=== PATIENT | male | born 1955 | race Caucasian/White ===

== ENCOUNTER 2019-12-26 14:25 | Emergency (ER) | payer OTHER, SELFPAY ==
--- NOTE | ~2019-12-26 | US_ITS ---
EXAMINATION: US scrotum doppler DATE: 12/26/2019 15:06 INDICATION: Testicular pain TECHNIQUE: Testicular sonogram utilizing grayscale and Doppler COMPARISON: None. FINDINGS: The right testis measures 3.2 x 2.1 x 2.5 cm. The left testis measures 3.9 x 2.0 x 2.5 cm. Symmetric normal grayscale appearance to both testes. There is normal vascular flow to both testes. The right e pididymis is normal with normal vascular flow. The left epididymis is normal with normal vascular emilie w. There is no varicocele. Small bilateral hydroceles. IMPRESSION: 1. Small bilateral hydroceles. Normal bilateral testes and epididymides. Reviewed, dictated and finalized at location A. [employer]
--- NOTE | ~2019-12-26 | CT_ITS ---
EXAMINATION: CT abdomen pelvis wo con EXAM DATE: 12/26/2019 15:44 INDICATION: Left flank pain. TECHNIQUE: Spiral CT of the abdomen and pelvis was performed without contrast. Axial, coronal and sag ittal images were reviewed. The dose-length product (DLP) for this examination was 499.75 mGy-cm. T he exposure was tailored according to patient size (auto mA exposure control), and iterative reconstr uction (ASIR) was used as additional dose reduction technique. Comparison is made to prior examinatio n from 03/09/2019. FINDINGS: There are 2 left calyceal stones, up to 5 mm. There is a 3 mm right superior calyceal stone . No ureteral stones or obstructive nephropathy. Patient has likely had prostatectomy. The bladder is collapsed at time of imaging limiting evaluation. The liver, spleen, adrenal glands and pancreas are unremarkable. Gallbladder is unremarkable. No biliary obstruction. There is no retroperitonea l or pelvic lymphadenopathy. There is mild scattered arteriosclerotic disease. Small left inguinal fat-containing hernia. The appendix is not positively visualized. There is no pericecal inflammatory change to suggest appe ndicitis. There is mild scattered colonic diverticulosis. There is no adjacent inflammatory change t o suggest diverticulitis. There are gastroesophageal surgical changes, could be Niesen fundoplication , with distended gastric cardia located above the diaphragm, moderate sized paraesophageal hernia. T here is expected amount of colonic stool. No free intraperitoneal gas. The heart is normal in siz e. There are no pericardial or pleural effusions. The lung bases are unremarkable. There are no os teoblastic or osteolytic lesions identified. IMPRESSION: 1. Bilateral nephrolithiasis. No hydronephrosis or acute intra-abdominal findings. 2. Moderate-sized paraesophageal hernia. 3. Mild colonic diverticulosis. Reviewed, dictated and finalized at location A. [employer] IMPRESSION: 1. Bilateral nephrolithiasis. No hydronephrosis or acute intra-abdominal findi ngs. 2. Moderate-sized paraesophageal hernia. 3. Mild colonic diverticulosis.
[2019-12-26 14:37] VITALS: BP 129/101; PULSE 76; RESP 16; TEMP 36.9; O2SAT 100
--- NOTE | 2019-12-26 15:00 | ED.ABDPAIN ---
HPI - Abdominal Pain General Chief Complaint: Urogenital-Male <Jackson Quinonez PA-C - Last Filed: 12/26/19 16:21> Stated Complaint: sent for possible return of testicular tortion <ISELA Colin Last Filed: 12/26/19 16:21> Time Seen by Provider: 12/26/19 14:31 <ISELA Colin Last Filed: 12/26/19 16:21> Source: patient <ISELA Colin Last Filed: 12/26/19 16:21> Mode of arrival: ambulatory <ISELA Colin Last Filed: 12/26/19 16:21> Limitations: no limitations <ISELA Colin Last Filed: 12/26/19 16:21> History of Present Illness HPI narrative: Patient is a 64-year-old male who presents to emergency department for evaluation of testicular pain for the last 7 days noting aching pain which is localized to the left testicle worse with movement activity. Notes a week ago he had had some frequency that resolved. Patient notes history of kidney stones. Patient notes he had had some mild discomfort in the lower abdomen but denies any at this time. Patient on arrival resting comfortably in the room in no distress. Patient notes he is recently getting over an upper respiratory infection. <ISELA Colin Last Filed: 12/26/19 16:21> Related Data Allergies/Adverse Reactions: Allergies Allergy/AdvReac Type Severity Reaction Status Date / Time Penicillins Allergy Mild UNKNONW Unverified 07/14/18 17:28 atorvastatin Allergy Unknown weak arms Verified 07/15/18 09:36 <ISELA Colin Last Filed: 12/26/19 16:21> Review of Systems Review of Systems: Narrative: CONSTITUTIONAL: Denies fever, chills, or sweats. EYES: Denies redness, or discharge. ENT: Positive for congestion and rhinorrhea CARDIOVASCULAR: Denies chest pain, palpitations, or edema. RESPIRATORY: Positive for cough denies dyspnea GASTROINTESTINAL: Denies nausea, vomiting, or diarrhea. GENITOURINARY: Denies dysuria or hematuria. SKIN: Denies rash or itching. MUSCULOSKELETAL: Denies joint pain, or myalgia. Positive for low back pain which she notes is chronic <Jackson Quinonez PA-C - Last Filed: 12/26/19 16:21> PMFSH Surgical History Surgical History: Surgical History (Updated 12/26/19 @ 15:02 by Jackson Quinonez PA-C) Hx of cholecystectomy <Jackson Quinonez PA-C - Last Filed: 12/26/19 16:21> Family History Family History: Family History (Updated 07/15/18 @ 09:39 by DOCTOR UNKNOWN) Other Diabetes mellitus Family history of malignant neoplasm Hypertension <Jackson Quinonez PA-C - Last Filed: 12/26/19 16:21> Social History Social History: Social History Smoking status: Never smoker Alcohol intake: current <Jackson Quinonez PA-C - Last Filed: 12/26/19 16:21> Exam Narrative: Exam Narrative: GENERAL: Well-appearing, well-nourished, and in no acute distress. HEAD: Normocephalic, atraumatic. EYES: PERRLA and EOMI. ENT: Nares clear, no rhinorrhea or epistaxis. Mucous membranes moist. CHEST: Clear to auscultation. No respiratory distress. No wheezes rales or rhonchi HEART: Regular rate and rhythm. No murmur heard. Normal peripheral pulses. ABDOMEN: Soft, nontender,distended MALE GENITOURINARY: Tenderness of the left testicle no deformities noted remainder of male genitourinary unremarkable EXTREMITIES: Normal range of motion. No edema. SKIN: Warm, dry, no rash. NEURO: No focal deficits. Alert and oriented x3. PSYCH: Normal mood and affect. <Jackson Quinonez PA-C - Last Filed: 12/26/19 16:21> Course Course Emergency Course: Patient in the room in no distress aware of case findings treatment plan and diagnosis agreeing to follow-up as directed <Jackson Quinonez PA-C - Last Filed: 12/26/19 16:21> Vital Signs Vital signs: Vital Signs Temperature 98.5 F 12/26/19 14:37 Pulse Rate 76 12/26/19 14:37 Respiratory Rate 16 12/26/19 14:3
[2019-12-26 15:32] LABS: Basophils Absolute Auto 0.1 K/mm3 (0.0-0.1); Basophils Percent Auto 1.1 % (0.2-1.2); Eosinophils Absolute Auto 0.2 K/mm3 (0-0.3); Hemoglobin 16.7 g/dL (14.0-18.0); Immature Granulocyte Absolute 0.02 K/mm3 (0.00-0.031); Immature Granulocyte Percent A 0.3 % (0-0.5); Lymphocytes Percent Auto 20.2 % (18.3-44.2); Mean Corpuscular HGB Conc 33.4 g/dl (32-36); Mean Corpuscular Hemoglobin 28.7 pg (26-34); Mean Corpuscular Volume 86.1 fl (80-100); Mean Platelet Volume 10.7 fl (7.4-10.4); Monocytes Absolute Auto 0.8 K/mm3 (0.1-0.6); Monocytes Percent Auto 10.8 % (2.6-8.5); Neutrophils Absolute Auto 4.9 K/mm3 (1.3-6.7); Neutrophils Percent Auto 65.6 % (45.5-73.1); Platelet Count Result 259 k/mm3 (150-375); Red Blood Count 5.81 M/mm3 (4.6-6.20); Red Cell Distribution Width 13.2 % (11.5-14.5); White Blood Count 7.4 K/mm3 (4.5-10.0)
[2019-12-26 15:43] LABS: Blood Urea Nitrogen 14 mg/dL (9-20); Calcium 9.5 mg/dL (8.4-10.2); Carbon Dioxide 23 mmol/L (22-30); Chloride 101 mmol/L (98-107); Estimated CRCL calculation 86 ml/min; Estimated Glomerular Filt Rate > 60; Glucose 118 mg/dL (75-110); Potassium 4.1 mmol/L (3.4-5.0); Sodium 136 mmol/L (137-145)
[2019-12-26 15:47] LABS: Add Urine Microscopic? YES; Appearance Urine Clear (Clear); Bilirubin Urine Negative (Negative); Blood Urine Negative (Negative); Color Urine Yellow (Yellow); Glucose Urine UA Negative (Negative); Ketones Urine Negative (Negative); Leukocyte Esterase Ur Trace LEU/UL (Negative); Mucus Urine Few /lpf; Nitrate Urine Negative (Negative); Protein Urine Negative (Negative); RBC Urine 0-2 /hpf (0-2); Specific Grav Ur 1.021 (1.001-1.035); Urobilinogen Urine Negative mg/dL (<2.0); WBC Urine 0-3 /hpf
== END 2019-12-26 16:30 | disposition home or self-care (01) ==
PROVIDERS: Emergency Medicine Emergency Medical Services; Emergency Provider Emergency Medicine; PCP Internal Medicine
DX: N50.812 Left testicular pain (principal); K57.30 Diverticulosis of large intestine without perforation or abscess without bleeding
CPT/HCPCS: 36415; 74176; 76870; 80048; 81001; 85025; 93976; 99284

== ENCOUNTER 2020-02-03 04:30 | Emergency (ER) | payer OTHER, SELFPAY ==
--- NOTE | ~2020-02-03 | XR_ITS ---
XR abdomen/kub 1V DATE: 02/03/2020 05:45 INDICATION: Left renal stone TECHNIQUE: Single supine AP view COMPARISON: 12/26/[address] abdomen pelvis / KUB FINDINGS: An approximately 4 x 6.5 mm calcified stone overlies the left ureteropelvic junction. A small calcified stone overlies the lower pole of the left kidney. Right upper pole renal calculus demonstrated on 12/26/2019 CT abdomen pelvis examination is likely excl uded from this examination, which does not include the upper abdomen. There are multiple surgical clips of the pelvic area consistent with prostatectomy. No suspicious ost eosclerotic lesions are noted; probable small bone island of left iliac bone. There is a prominent amount fecal material in the right colon. There is no evidence of bowel obstruct ion. IMPRESSION: Approximately 4 x 6.5 mm calcified stone at left ureteropelvic junction Bilateral nephrolithiasis Status post prostatectomy Reviewed, dictated and finalized at Location [facility]. Reviewed, dictated and finalized at location A. IMPRESSION: Approximately 4 x 6.5 mm calcified stone at left ureteropelvic junc tion Bilateral nephrolithiasis Status post prostatectomy
[2020-02-03 04:40] VITALS: BP 178/104; PULSE 69; RESP 18; TEMP 36.1; O2SAT 100
[2020-02-03] MEDS: ONDANSETRON INJ 4 MG/2 ML VIAL IV PUSH (04:57)
[2020-02-03] MEDS: MORPHINE SULFATE 4 MG/ML INJ IV PUSH (04:59)
[2020-02-03] MEDS: SODIUM CHLORIDE 0.9% IV 1,000 ML 999 ML IV CONT (04:59)
[2020-02-03 05:01] LABS: Basophils Absolute Auto 0.1 K/mm3 (0.0-0.1); Eosinophils Absolute Auto 0.1 K/mm3 (0-0.3); Eosinophils Percent Auto 1.8 % (0-4.4); Hematocrit 49.6 % (42.0-52.0); Hemoglobin 16.4 g/dL (14.0-18.0); Immature Granulocyte Absolute 0.03 K/mm3 (0.00-0.031); Immature Granulocyte Percent A 0.5 % (0-0.5); Lymphocytes Absolute Auto 1.13 K/mm3 (0.9-3.2); Lymphocytes Percent Auto 18.1 % (18.3-44.2); Mean Corpuscular HGB Conc 33.1 g/dl (32-36); Mean Corpuscular Hemoglobin 28.1 pg (26-34); Mean Corpuscular Volume 85.1 fl (80-100); Mean Platelet Volume 10.4 fl (7.4-10.4); Monocytes Absolute Auto 0.6 K/mm3 (0.1-0.6); Neutrophils Absolute Auto 4.3 K/mm3 (1.3-6.7); Neutrophils Percent Auto 68.6 % (45.5-73.1); Platelet Count Result 241 k/mm3 (150-375); Red Blood Count 5.83 M/mm3 (4.6-6.20); Red Cell Distribution Width 13.9 % (11.5-14.5); White Blood Count 6.2 K/mm3 (4.5-10.0)
--- NOTE | 2020-02-03 05:08 | ED.GENADULT ---
HPI - General Adult General Chief complaint: Abdominal Pain Stated complaint: KIDNEY STONE Time Seen by Provider: 02/03/20 04:35 Source: patient Mode of arrival: ambulatory Limitations: no limitations History of Present Illness HPI narrative: Patient is a 64-year-old male who presents to the emergency department for evaluation of left flank pain that radiates into the left lower abdomen. Described as sharp in the intermittent colicky pain. Patient has had associated nausea without emesis. No fever, chills, dysuria or hematuria. Patient with a history of recurrent nephrolithiasis, was in the emergency department about a month ago and then passed a stone. He had followed with Dr. Harden in the past and then intermittently at [facility] for his nephrolithiasis. Patient has not taken any medication for pain. Related Data Home Medications Medication Instructions Recorded Confirmed atorvastatin 02/03/20 ezetimibe mg 02/03/20 hydrocodone-acetaminophen 02/03/20 losartan 02/03/20 telmisartan mg 02/03/20 Allergies Allergy/AdvReac Type Severity Reaction Status Date / Time Penicillins Allergy Mild UNKNONW Unverified 02/03/20 05:24 atorvastatin Allergy Unknown weak arms Verified 02/03/20 05:24 Review of Systems Review of Systems: Narrative: CONSTITUTIONAL: Denies fever, chills, or sweats. EYES: Denies visual changes, redness, or discharge. ENT: Denies rhinorrhea, congestion, sore throat, or otalgia. CARDIOVASCULAR: Denies chest pain, palpitations, or edema. RESPIRATORY: Denies cough or dyspnea. GASTROINTESTINAL: Reports left lower quadrant abdominal pain, nausea, denies vomiting or diarrhea GENITOURINARY: Denies dysuria or hematuria. SKIN: Denies rash or itching. MUSCULOSKELETAL: Reports left lower back pain, denies myalgias NEUROLOGIC: Denies headache, numbness, or weakness. [facility] Past Medical History Medical History (Updated 02/03/20 @ 05:50 by June Marion MD) Nephrolithiasis Prostate cancer Surgical History Surgical History (Updated 02/03/20 @ 05:09 by June Marion MD) H/O prostatectomy Hx of cholecystectomy Family History Family History (Updated 07/15/18 @ 09:39 by DOCTOR UNKNOWN) Other Diabetes mellitus Family history of malignant neoplasm Hypertension Social History Social History Smoking status: Never smoker Alcohol intake: current Exam Narrative: Exam Narrative: GENERAL: Awake, alert, slightly uncomfortable. HEAD: Normocephalic, atraumatic. EYES: PERRLA and EOMI. ENT: Nares clear, no rhinorrhea or epistaxis. Mucous membranes moist. NECK: Supple. CHEST: Clear to auscultation. No respiratory distress. HEART: Regular rate and rhythm. No murmur heard. Normal peripheral pulses. ABDOMEN: Soft, mild left lower quadrant tenderness, nondistended, normal active bowel sounds. Left flank tenderness. EXTREMITIES: Normal range of motion. No edema. SKIN: Warm, dry, no rash. NEURO: No focal deficits. Alert and oriented x3 Course Course Emergency Course: Patient presented to the emergency department for evaluation of left flank pain. Patient with history of nephrolithiasis, CT scan in December shows that the patient has 2 left-sided kidney stones. Given patient's recent CT scan and history of prostate cancer, no RICHARD, no UTI, obtained a KUB for today. We were able to get pain control, and patient elected for discharge home and follow-up with Dr. Harden. Vital Signs Vital signs: Vital Signs Temperature 36.1 C L 02/03/20 04:40 Pulse Rate 69 02/03/20 04:40 Respiratory Rate 18 02/03/20 04:40 Blood Pressure 178/104 H 02/03/20 04:40 Pulse Oximetry 100 02/03/20 04:40 Temperature 36.1 C L 02/03/20 04:40 Pulse Rate 70 02/03/20 05:09 Respiratory Rate 16 02/03/20 05:09 Blood Pressure 133/94 H 02/03/20 05:09 Pulse Oximetry 97 02/03/20 05:09 Medical Decision Making Medical Rec
[2020-02-03 05:09] VITALS: BP 133/94; PULSE 70; RESP 16; O2SAT 97
[2020-02-03 05:13] LABS: Alanine Aminotransferase 33 U/L (4-50); Albumin Level 4.4 g/dL (3.5-5.1); Alkaline Phosphatase 109 U/L (38-126); Aspartate Amino Transferase 28 U/L (17-59); Bilirubin,Total 0.9 mg/dL (0.2-1.3); Blood Urea Nitrogen 15 mg/dL (9-20); Calcium 9.6 mg/dL (8.4-10.2); Carbon Dioxide 24 mmol/L (22-30); Chloride 104 mmol/L (98-107); Estimated CRCL calculation 65 ml/min; Estimated Glomerular Filt Rate 56; Glucose 141 mg/dL (75-110); Potassium 4.2 mmol/L (3.4-5.0); Sodium 136 mmol/L (137-145)
[2020-02-03 05:19] LABS: Add Urine Microscopic? YES; Appearance Urine Clear (Clear); Bacteria Urine Trace /hpf; Bilirubin Urine Negative (Negative); Blood Urine 3+ (Negative); Color Urine Yellow (Yellow); Glucose Urine UA Negative (Negative); Ketones Urine Negative (Negative); Leukocyte Esterase Ur Negative LEU/UL (Negative); Mucus Urine Rare /lpf; Nitrate Urine Negative (Negative); Protein Urine Negative (Negative); RBC Urine >75 /hpf (0-2); Squamous Epithelial Cell Urine Rare /hpf (Few); Urobilinogen Urine Negative mg/dL (<2.0); WBC Urine 0-3 /hpf
[2020-02-03] MEDS: KETOROLAC 15 MG/ML VIAL (*BKC) IV PUSH (06:02)
[2020-02-03 06:14] VITALS: BP 126/88; PULSE 71; RESP 18; TEMP 36.2; O2SAT 99
== END 2020-02-03 06:19 | disposition home or self-care (01) ==
PROVIDERS: Emergency Provider Emergency Medicine; PCP Internal Medicine
DX: N20.2 Calculus of kidney with calculus of ureter (principal); Z85.46 Personal history of malignant neoplasm of prostate; Z90.79 Acquired absence of other genital organ(s); Z87.442 Personal history of urinary calculi
CPT/HCPCS: 36415; 74018; 80053; 81001; 85025; 96361; 96374; 96375; 99284; J0131; J1885; J2270; J2405; J7030

== ENCOUNTER 2020-02-07 10:02 | Outpatient (CLI) | payer OTHER, SELFPAY ==
--- NOTE | 2020-02-07 10:08 | ECG_ITS ---
Measurements Intervals Edelstein Rate: 79 P: 58 NC: 163 QRS: 17 QRSD: 102 T: 32 QT: 366 QTc: 421 Interpretive Statements SINUS RHYTHM BASELINE ARTIFACT- I, II, AVR NORMAL ECG Electronically Signed On 02-07-2020 10:38:00 CDT by Jose Guadalupe Angeles D.O.
[2020-02-07 11:10] LABS: INR 0.9; Prothrombin Time 11.9 Seconds (11.1-14.7)
[2020-02-07 11:11] LABS: Partial Thromboplastin Time 27.7 SECONDS (22.3-36.8)
== END 2020-02-07 10:03 | disposition home or self-care (01) ==
LOC: ANHSURGERY 10:08
PROVIDERS: PCP Internal Medicine; Visit Provider Urology
DX: N20.0 Calculus of kidney (principal); I10 Essential (primary) hypertension
CPT/HCPCS: 36415; 85610; 85730; 87086; 93005

== ENCOUNTER 2020-02-10 01:24 | Day surgery (SDC) | payer OTHER, SELFPAY ==
[2020-02-06 15:57] VITALS: BMI 32.9
[2020-02-10] VITALS (7 sets, daily range): BP systolic 120–148; BP diastolic 90–98; PULSE 68–89; RESP 17–22; TEMP 36.3–36.9; O2SAT 97–100; BMI 32.8
--- NOTE | ~2020-02-10 | XR_ITS ---
EXAMINATION: XR abdomen/kub 1V DATE: 02/10/2020 11:06 INDICATION: Right sided nephrolithiasis for lithotripsy. TECHNIQUE: A supine view of the abdomen on 2 radiographs was obtained. COMPARISON: 02/03/2020 FINDINGS: No interval change in a 7 x 4 mm stone projecting over the region of the right ureteropelvic junction . Also unchanged is a 3 mm stone projecting over the lower pole of the left kidney and a 4 mm stone p rojecting over the upper pole of the right kidney. Unchanged pattern of multiple phleboliths in the p salvatore. There are also multiple surgical clips in the pelvis. No dilated loops of gas-filled bowel to suggest obstruction. Hiatal hernia with additional multiple surgical clips at the epigastric region. Lung bases are clear. Heart size is normal. Mild lower lumbar levocurvature with moderate spondylosis . IMPRESSION: 1. Bilateral nephrolithiasis with unchanged stone at the left ureteropelvic junction. Reviewed, dictated and finalized at location A. IMPRESSION: 1. Bilateral nephrolithiasis with unchanged stone at the left ureteropelvic manny ction.
--- NOTE | 2020-02-10 09:22 | WPDHPUPDATE1 ---
History and Physical Update Update Date/Time: 02/10/20 09:22 History and Physical has been reviewed, including an updated exam of the patient. There are NO changes in the patient's condition. Risks, benefits, and alternatives have been discussed and questions answered. Patient agrees to proceed with procedure.
[2020-02-10] MEDS: LACTATED RINGERS 1,000 ML 30 ML IV CONT ×2 (10:45→12:39)
--- NOTE | 2020-02-10 11:06 | WPDANESEPPF ---
Anes - Initial Pre Proc Eval Procedure: Operation Date: 02/10/20 11:30 Proposed Procedures p Left Ureteropelvic Junction Extracorporeal Shock Wave Lithotripsy With Left Stent Placement, Possible Left Ureteroscopy, Possible Left Retrograde Pyelogram - Acosta Harden MD s Possible Holmium Laser Procedure - Acosta Harden MD Date/Time: 02/10/20 11:06 Surgeon: Acosta Harden MD Pre Op Diagnosis: Left UPJ Stone Patient Data Age: 64 Gender: M Height: 5 ft 11 in Weight: 107.05 kg Allergies Allergy/AdvReac Type Severity Reaction Status Date / Time Penicillins Allergy Mild UNKNOWN Unverified 02/06/20 15:59 REACTION atorvastatin Allergy Unknown MUSCLE Verified 02/06/20 15:59 WEAKNESS Home Medications Medication Instructions Recorded Confirmed Type atorvastatin 10 mg PO EVERY OTHER DAY 02/03/20 02/06/20 History ezetimibe 10 mg PO DAILY 02/03/20 02/06/20 History losartan 50 mg PO DAILY 02/03/20 02/06/20 History oxycodone-acetaminophen 1 tablet PO Q6H PRN #14 tablet 02/03/20 02/06/20 Rx tamsulosin [Flomax] 0.4 mg PO DAILY #30 cap 02/03/20 02/06/20 Rx Prostaglandin 50 mg SUBCUT WEEKLY 02/06/20 History apple cider vinegar 300 mg PO DAILY 02/06/20 02/06/20 History aspirin 81 mg PO DAILY 02/06/20 02/06/20 History cholecalciferol (vitamin D3) 50 mcg PO DAILY 02/06/20 02/06/20 History [Vitamin D3] cinnamon bark [Cinnamon] 1,000 mg PO DAILY 02/06/20 02/06/20 History cyanocobalamin (vitamin B-12) 5,000 mcg SUBLINGUAL DAILY 02/06/20 02/06/20 History [Vitamin B-12] multivitamin 2 tablet PO DAILY 02/06/20 02/06/20 History ondansetron HCl [Zofran] 4 mg PO Q8H PRN 02/06/20 02/06/20 History Patient hx anesthesia problems: none Family hx anesthesia problems: none PMFSH Past Medical History Medical History (Updated 02/10/20 @ 11:07 by Erwin Gonzalez MD) HTN (hypertension) Hyperlipidemia Nephrolithiasis Prostate cancer Surgical History Surgical History H/O prostatectomy Hx of cholecystectomy Family History Family History Other Diabetes mellitus Family history of malignant neoplasm Hypertension Social History Social History Smoking status: Never smoker Alcohol intake: current Anes - Eval Final PreProcedure Day of Procedure 02/10/20 11:06 Patient weight: obese Heart: regular rate and rhythm Lungs: clear to auscultation Airway: Mallampati scale class III Neurological: alert and oriented Last oral intake: >/= 8 hours ASA classification: III Emergent: no Anesthetic plan: proceed Anesthesia type and monitoring: general LMA and standard monitoring Informed Consent: The patient's anesthetic plan and its attendant risks and benefits were discussed with the patient/family/POA. Questions were solicited and answers provided to the satisfaction of the patient/family/POA.
[2020-02-10] MEDS: ceFAZolin 2 GM/D5W 50 ML 2 GM/50 ML BAG IVPB (11:56)
--- NOTE | 2020-02-10 12:32 | PM.PROC ---
Procedure Note - Detailed Date of procedure: 02/10/20 Pre-op diagnosis: Left UPJ Stone Post-op diagnosis: same Procedure performed: Lithotripsy of left UPJ calculus 7 mm Description of procedure: Patient was taken to the operative suite. He was correctly identified. Once anesthesia was obtained the stone was localized in both planes. Two thousand five hundred shocks were given to the stone. He tolerated procedure well without any complications and is taken recovery room stable condition. A follow-up in 10 days with KUB. She develops any problems prior to that he will call us so we can deal with appropriately. Anesthesia: GLMA Surgeon: Acosta Harden MD Drains: No Packing: No Pathology: none sent Complications: No immediate complications Condition: stable Disposition: PACU
== END 2020-02-10 14:23 | disposition home or self-care (01) ==
PROVIDERS: PCP Internal Medicine; Visit Provider Urology
PROC: (CPT 50590; principal; 2020-02-10 11:30)
DX: N20.1 Calculus of ureter (principal); I10 Essential (primary) hypertension; E78.5 Hyperlipidemia, unspecified; Z85.46 Personal history of malignant neoplasm of prostate; Z79.82 Long term (current) use of aspirin; E66.9 Obesity, unspecified; Z68.32 Body mass index [BMI] 32.0-32.9, adult
CPT/HCPCS: 50590; 74018; A9270; J0690; J1100; J2250; J2370; J2405; J2704; J7120

== ENCOUNTER → 2020-02-28 15:38 | Outpatient (CLI) | payer OTHER, SELFPAY ==
--- NOTE | ~2020-02-28 | XR_ITS ---
EXAMINATION: XR abdomen/kub 1V INDICATION: Calcium kidney stone TECHNIQUE: Supine views of the abdomen were obtained on 2 radiographs. COMPARISON: 02/10/2020 FINDINGS: The previously described stones projecting at the left ureteropelvic junction and in the le ft kidney lower pole are no longer identified, likely due to interval treatment. There is a questiona ble 4 mm stone fragment projecting over the left L4 transverse process. There appears to be a [address] one in the upper pole of the right kidney. Multiple phleboliths are noted in the pelvis. Also noted a re surgical clips in the pelvis. Moderate lumbar spondylosis is noted. IMPRESSION: 1. Interval treatment of the previously described left-sided stones with possible stone fragment in t he left ureter at the level of the L4 transverse process. 2. Right nephrolithiasis. Reviewed, dictated and finalized at location A. IMPRESSION: 1. Interval treatment of the previously described left-sided stones with possib le stone fragment in the left ureter at the level of the L4 transverse process. 2. Right nephrolithiasis.
== END ==
PROVIDERS: Visit Provider Urology
DX: N20.0 Calculus of kidney (principal)
CPT/HCPCS: 74018

== ENCOUNTER → 2021-02-26 12:08 | Outpatient (CLI) | payer OTHER, SELFPAY ==
--- NOTE | ~2021-02-26 | MR_ITS ---
EXAMINATION: MR lumbar spine wo [facility] EXAM DATE: 02/26/2021 12:49 INDICATION: Acute right-sided low back pain with right-sided sciatica. TECHNIQUE: Multi-sequential, multiplanar MR images of the lumbar spine were obtained without contrast . Sagittal T1, T2, T2 fat saturation images. Axial T2 weighted images. There is no prior study for comparison. FINDINGS: Mild to moderate disc disease at L4-5 with vacuum disc phenomenon. Mild disc disease at the other lumbar levels. Large hemangioma within the L1 vertebral body. There is 3 mm retrolisthesis L5 on S1. The conus medullaris terminates at the T12-L1 level and has normal signal intensity and morpho logy. Paraspinal soft tissue is unremarkable. Level by level evaluation: T12-L1: Disc does not extend beyond the endplate margin. Facet arthropathy: Mild. Neural foraminal stenosis: No stenosis. Central canal stenosis: No stenosis. L1-L2: There is a mild diffuse disc bulge with superimposed small left central extrusion, about 5 mm inferior migration. Facet arthropathy: Mild. Neural foraminal stenosis: No stenosis. Central canal stenosis: Mild. L2-L3: There is a mild to moderate diffuse disc bulge. Facet arthropathy: Mild to moderate. Neural foraminal stenosis: Mild bilateral. Central canal stenosis: Mild. L3-L4: There is a mild to moderate diffuse disc bulge. Facet arthropathy: Mild to moderate. Neural foraminal stenosis: Mild to moderate bilateral. Central canal stenosis: Mild to moderate. L4-L5: There is a moderate diffuse disc bulge. Facet arthropathy: Moderate . Ligamentum flavum enlargement. Neural foraminal stenosis: Moderate right, mild to moderate left. Central canal stenosis: Moderate. Bilateral lateral recess narrowing and nerve root crowding. L5-S1: There is a mild diffuse disc bulge. Facet arthropathy: Mild. Neural foraminal stenosis: Mild to moderate left. Central canal stenosis: Mild. IMPRESSION: 1. L4-5 moderate central canal and right neural foraminal stenosis. 2. Less spondylosis other levels. Reviewed, dictated and finalized at location A.
== END ==
PROVIDERS: PCP Internal Medicine; Visit Provider Internal Medicine
DX: M54.41 Lumbago with sciatica, right side (principal)
CPT/HCPCS: 72148

== ENCOUNTER 2023-10-15 15:37 | Emergency (ER) | payer OTHER, SELFPAY ==
--- NOTE | ~2023-10-15 | XR_ITS ---
XR abdomen/kub 1V DATE: 10/15/2023 18:11 INDICATION: Kidney stone TECHNIQUE: AP views COMPARISON: None FINDINGS: There is an approximately 4 x 6 mm calcification overlying the right ureteropelvic junction , consistent with ureteropelvic junction calculus at this site confirmed on today's CT abdomen pelvis examination. Occasional small bilateral renal calculi documented on today's CT abdomen pelvis examin ation are minimally if at all visualized. No bowel obstruction. The psoas shadows appear intact. No visceromegaly is evident. Multiple surgical clips overlying the pelvis consistent with prostatectomy. Surgical clips are noted in the left upper quadrant as well.. IMPRESSION: Right ureterovesical junction calcified calculus Reviewed, dictated and finalized at [facility]. 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
--- NOTE | ~2023-10-15 | CT_ITS ---
EXAMINATION: CT abdomen pelvis wo con DATE: 10/15/2023 16:29 INDICATION: Right flank pain. History of stones. TECHNIQUE: Computed tomography (CT) of the abdomen and pelvis was performed without intravenous contr ast. Automated exposure control and iterative reconstruction technique were employed. Exam dose: 577 .66 mGy-cm total exam DLP. COMPARISON: December 26, 2019 CT abdomen pelvis FINDINGS: Left foramen of [place] fat-containing hernia. The lung bases are clear of infiltrate or consolidation. Heart size is normal. There is coronary deborah ry calcification. No pericardial or pleural effusion. Moderate size is paraesophageal hernia. Surgical clips are noted laterally along the upper stomach on either side of the diaphragm. The liver, gallbladder, bile ducts, spleen, pancreas, pancreatic duct, and adrenal glands are unremar kable. There are several small nonobstructing right renal calculi and approximately 4 nonobstructing left re nal calculi, the largest approximately 3.7 mm. There is a right ureteropelvic junction calculus which measures up to 4.9 x 7.3 x 7.3 mm dimension, w ith mild right hydronephrosis and perinephric stranding as a result. The urinary bladder is evacuated, essentially unremarkable on this limited noncontrast examination. Status post prostatectomy. Small fat-containing left inguinal hernia. Diverticulosis of the left colon; no CT evidence of diverticulitis. No bowel obstruction or intraperi toneal free air. The appendix is not visualized. Moderate to moderately severe degenerative disc disease at L4-5 and L5-S1. No suspicious osteolytic o r osteoblastic lesions are noted. IMPRESSION: 4.9 x 7.3 x 7.3 mm obstructing right ureteropelvic junction calculus with mild right hyd ronephrosis and perinephric stranding Mild bilateral nonobstructive nephrolithiasis Moderate paraesophageal hiatal hernia Small fat-containing left inguinal hernia Status post prostatectomy Diverticulosis of left colon; no evidence of diverticulitis Reviewed, dictated and finalized at [facility]. Reviewed, dictated and finalized at location [facility]. 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
[2023-10-15 15:38] VITALS: PULSE 90; RESP 16; TEMP 36.4; O2SAT 100
[2023-10-15 16:06] LABS: Basophils Percent Auto 0.4 % (0.2-1.2); Eosinophils Percent Auto 0.3 % (0-4.4); Hematocrit 51.8 % (42.0-52.0); Hemoglobin 16.9 g/dL (14.0-18.0); Immature Granulocyte Absolute 0.03 K/mm3 (0.00-0.031); Immature Granulocyte Percent A 0.3 % (0-0.5); Lymphocytes Absolute Auto 0.94 K/mm3 (0.9-3.2); Lymphocytes Percent Auto 8.6 % (18.3-44.2); Mean Corpuscular HGB Conc 32.6 g/dl (32-36); Mean Corpuscular Hemoglobin 28.7 pg (26-34); Mean Corpuscular Volume 87.9 fl (80-100); Mean Platelet Volume 10.8 fl (7.4-10.4); Monocytes Absolute Auto 0.9 K/mm3 (0.1-0.6); Monocytes Percent Auto 7.8 % (2.6-8.5); Neutrophils Absolute Auto 9.1 K/mm3 (1.3-6.7); Neutrophils Percent Auto 82.6 % (45.5-73.1); Platelet Count Result 259 k/mm3 (150-375); Red Blood Count 5.89 M/mm3 (4.6-6.20); Red Cell Distribution Width 13.9 % (11.5-14.5)
[2023-10-15 16:14] LABS: Appearance Urine Cloudy (Clear); Bacteria Urine None Seen /hpf; Bilirubin Urine Negative (Negative); Blood Urine 3+ (Negative); Color Urine Dark Yellow (Yellow); Glucose Urine UA Negative (Negative); Ketones Urine Trace mg/dL (Negative); Leukocyte Esterase Ur Negative LEU/UL (Negative); Nitrate Urine Negative (Negative); Non Pathogenic Casts 0-2; Protein Urine Trace mg/dL (Negative); RBC Urine 51-100 /hpf (0-2); Specific Grav Ur 1.028 (1.001-1.035); Squamous Epithelial Cell Urine None seen /hpf (Few); WBC Urine 0-5 /hpf; pH Urine 5.5 (5.0-9.0)
[2023-10-15 16:15] LABS: Add Urine Microscopic? YES
[2023-10-15 16:16] LABS: Alanine Aminotransferase 53 U/L (6-50); Anion Gap 11 mmol/L (8-16); Aspartate Amino Transferase 45 U/L (17-59); Bilirubin,Total 1.2 mg/dL (0.2-1.3); Blood Urea Nitrogen 16 mg/dL (9-20); Calcium 9.8 mg/dL (8.4-10.2); Carbon Dioxide 26 mmol/L (22-30); Chloride 102 mmol/L (98-107); Estimated CRCL calculation 61 ml/min; Estimated Glomerular Filt Rate 51; Glucose 207 mg/dL (65-110); Potassium 4.4 mmol/L (3.4-5.0); Sodium 139 mmol/L (137-145)
[2023-10-15 16:17] LABS: Albumin Level 4.7 g/dL (3.5-5.1); Alkaline Phosphatase 90 U/L (38-126)
--- NOTE | 2023-10-15 18:05 | ED.GENADULT ---
HPI - General Adult General Chief complaint: Urogenital-Male Stated complaint: kidney stones Time Seen by Provider: 10/15/23 15:46 History of Present Illness HPI narrative: 67-year-old male history of kidney stones presenting to the emergency department for evaluation of right flank pain. Patient no longer has a urologist that he follows up with. patient has prior history of kidney stones and prostate cancer. Patient previously had follow-up with Dr. Harden. patient reports worsening right flank pain over the last few days he continued to worsen today. Related Data Home Medications Medication Instructions Recorded Confirmed atorvastatin 10 mg tablet 10 mg PO EVERY OTHER DAY 02/03/20 02/06/20 ezetimibe 10 mg tablet 10 mg PO DAILY 02/03/20 02/06/20 losartan 50 mg tablet 50 mg PO DAILY 02/03/20 02/06/20 Prostaglandin 50 mg subcut WEEKLY 02/06/20 apple cider vinegar 300 mg tablet 300 mg PO DAILY 02/06/20 02/06/20 aspirin 81 mg tablet,delayed 81 mg PO DAILY 02/06/20 02/06/20 release cholecalciferol (vitamin D3) 50 50 mcg PO DAILY 02/06/20 02/06/20 mcg (2,000 unit) tablet (Vitamin D3) cinnamon bark 500 mg capsule 1,000 mg PO DAILY 02/06/20 02/06/20 (Cinnamon) cyanocobalamin (vitamin B-12) 5,000 mcg sublingual DAILY 02/06/20 02/06/20 5,000 mcg sublingual tablet (Vitamin B-12) multivitamin 2 tablet PO DAILY 02/06/20 02/06/20 ondansetron HCl 4 mg tablet 4 mg PO Q8H PRN Nausea 02/06/20 02/06/20 (Zofran) Allergies Allergy/AdvReac Type Severity Reaction Status Date / Time Penicillins Allergy Mild UNKNOWN Verified 02/10/20 11:26 REACTION atorvastatin Allergy Unknown MUSCLE Verified 02/06/20 15:59 WEAKNESS Review of Systems Review of Systems: All systems reviewed & are unremarkable except as noted in HPI and below PMFSH Past Medical History Medical History (Updated 10/16/23 @ 00:00 by Susy Ventura) HTN (hypertension) Hyperlipidemia Nephrolithiasis Prostate cancer Surgical History Surgical History H/O prostatectomy Hx of cholecystectomy Family History Family History Other Diabetes mellitus Family history of malignant neoplasm Hypertension Social History Social History Smoking status: Never smoker Alcohol intake: current Exam Narrative: APPEARANCE: Well appearing, no pain, no distress, well-nourished. HEAD: normocephalic, atraumatic. EYES: PERRLA/EOMI, conjunctivae clear. NOSE: Normal no drainage EARS:TMS clear with good light reflex. THROAT: Pharynx clear, no exudate. NECK: Supple. No adenopathy, no masses. RESPIRATORY: Airway patent, respirations nonlabored. Clear to auscultation bilaterally, no rales, rhonchi, wheezing. CARDIOVASCULAR: Regular rate and rhythm without murmurs rubs or gallops. ABDOMINAL: Soft, nontender, nondistended, normal bowel sounds MUSCULOSKELETAL: Moves all extremities. Strength/ROM intact, No edema, No calf tenderness. NEURO: Alert. Cranial nerves II through XII intact. grossly intact SKIN: Warm, dry. Normal Color Course Course Emergency Course: 67-year-old male presents emergency department for evaluation of right flank pain that felt similar to his previous kidney stones. Patient is afebrile with a leukocytosis of 11.0 and a stable hemoglobin of 16.9. No significant changes on the patient's CMP and UA shows no evidence of infection but does have blood. 4.9 x 7.3 x 7.3 mm obstructing right ureteropelvic junction calculus with mild right hydronephrosis and perinephric stranding. Patient reports that his pain is controlled. Patient will be discharged home with Zofran Flomax and medication for pain control. Patient was also encouraged to have close follow-up with Urology. All questions concerns were addressed patient was comfortable with plan for discharge and c
[2023-10-15 18:21] VITALS: BP 137/97; O2SAT 100
[2023-10-15] MEDS: ONDANSETRON HCL ODT 4 MG TABLET PO (18:31)
[2023-10-15] MEDS: TAMSULOSIN HCL 0.4 MG CAPSULE PO (18:31)
[2023-10-15] MEDS: HYDROcodone/acetaminophen (*CRX) 10-325 MG TABLET 1 TAB PO (18:31)
--- NOTE | 2023-10-15 18:39 | PC.NURSE ---
Pt and daughter both state his blood pressure is always elevated when in pain. Pt daughter stated they didnt want to bring him to hospital because he might get admitted for his bp. Both pt and daughter insist that his blood pressure is normally high. Pt states he missed his coreg dose at 5pm. Pt [id number]
== END 2023-10-15 18:39 | disposition home or self-care (01) ==
PROVIDERS: Emergency Provider Emergency Medicine; PCP Family Medicine Sports Medicine
DX: N13.2 Hydronephrosis with renal and ureteral calculous obstruction (principal); I10 Essential (primary) hypertension; E78.5 Hyperlipidemia, unspecified; Z87.442 Personal history of urinary calculi; Z85.46 Personal history of malignant neoplasm of prostate; Z90.79 Acquired absence of other genital organ(s); Z90.49 Acquired absence of other specified parts of digestive tract; Z79.82 Long term (current) use of aspirin; K44.9 Diaphragmatic hernia without obstruction or gangrene; K40.90 Unilateral inguinal hernia, without obstruction or gangrene, not specified as recurrent; K57.90 Diverticulosis of intestine, part unspecified, without perforation or abscess without bleeding
CPT/HCPCS: 36415; 74018; 74176; 80053; 81001; 85025; 99284; A9270

== ENCOUNTER 2023-10-21 14:29 | Outpatient (CLI) | payer OTHER, SELFPAY ==
--- NOTE | 2023-10-21 14:48 | ECG_ITS ---
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
[2023-10-21 15:36] LABS: INR 0.9
[2023-10-21 15:37] LABS: Appearance Urine Clear (Clear); Bacteria Urine None Seen /hpf; Bilirubin Urine Negative (Negative); Blood Urine 3+ (Negative); Color Urine Yellow (Yellow); Glucose Urine UA Negative (Negative); Hyaline Casts Urine Present /lpf; Ketones Urine Trace mg/dL (Negative); Leukocyte Esterase Ur Trace LEU/UL (Negative); Nitrate Urine Negative (Negative); Non Pathogenic Casts 0-2; Protein Urine Negative (Negative); Specific Grav Ur 1.022 (1.001-1.035); Squamous Epithelial Cell Urine None seen /hpf (Few); WBC Urine 0-5 /hpf; pH Urine 5.5 (5.0-9.0)
[2023-10-21 15:38] LABS: Add Urine Microscopic? YES; Partial Thromboplastin Time 30.7 SECONDS (22.3-36.8)
== END 2023-10-21 14:30 | disposition home or self-care (01) ==
LOC: ANHSURGERY 14:35
PROVIDERS: PCP Family Medicine Sports Medicine; Visit Provider Urology
DX: N20.0 Calculus of kidney (principal); E78.5 Hyperlipidemia, unspecified; Z01.818 Encounter for other preprocedural examination
CPT/HCPCS: 36415; 81001; 85610; 85730; 93005

== ENCOUNTER 2023-10-23 03:30 | Day surgery (SDC) | payer OTHER, SELFPAY ==
[2023-10-21 09:04] VITALS: BMI 32.8
--- NOTE | 2023-10-21 09:14 | PC.NURSE ---
PRE-OP INSTRUCTIONS, PLEASE READ CAREFULLY Report to the Outpatient Waiting Room, entrance under the green pavilion located off [facility], at time _0600_ on date _10/23/23_. Planned Procedure Time: _0730_. Time changes happen often and if your time is changed the preop area will call you the afternoon before. - You and your visitor will be asked to self-screen and do not enter if you have any COVID symptoms. - A mask is optional within the hospital at this time. Patients may have clear liquids (water, carbonated beverages, clear teas, apple juice) until 3 hours prior to surgery (0430 AM) with a maximum of 20 ounces. - No food from midnight until time of surgery Take the following medications with a SIP of water the morning of surgery: _PAIN PILL IF NEEDED_ DO NOT STOP ANY OF YOUR OTHER PRESCRIPTION MEDICATIONS PRIOR TO SURGERY ?EXCEPT THE FOLLOWING Medications to discontinue per physician _PT STATES STOPPING ASPIRIN 10/14/23 & OTC VITAMINS/SUPPLEMENTS 10/20/23 Please no make-up, nail czech, hairspray, perfume, deodorant, or body powder the day of surgery. No jewelry (including any body piercings) or valuables the day of surgery, leave them at home. Please take a shower or bath the night before, or the morning of, surgery with an antibacterial soap. Wear comfortable, loose fitting clothing. - Jewelry must be removed prior to entering the operating room. Rings and piercings that are not removed may be cut off. - The hospital will not accept responsibility for valuables. - Please leave all valuables, including medications, at home the day of surgery. If you are going home after surgery, a licensed parts driver must drive you home. - NO public transportation without another adult if you receive anesthesia. - We recommend that an adult stay with you for 24 hours following discharge. - We also recommend that you do not drive, make important decision, drink alcoholic beverages, or take any drugs that were not prescribed by your health care provider for at least 24 hours after your discharge time. Follow any additional instructions given to you from your surgeon. If you or anyone in your household have experienced Covid symptoms in the past week, please notify your surgeon or the nurse liaison at the phone number below for possible testing. Telephone instructions given to _PATIENT_and asked if any additional questions and then verbalized understanding. Patient advised to call surgeon office or pre surgery nurse liaison [phone] if any additional questions.
--- NOTE | 2023-10-22 15:21 | WPDANESEPPF ---
Anes - Initial Pre Proc Eval Procedure: Operation Date: 10/23/23 07:30 Proposed Procedures p Left Ureteral Extracorporeal Shock Wave Lithotripsy - Martin Rivera MD Date/Time: 10/22/23 15:21 Surgeon: Martin Rivera MD Pre Op Diagnosis: left ureteral stone Patient Data Age: 67 Gender: M Height: 1.83 m Weight: 110 kg Allergies Allergy/AdvReac Type Severity Reaction Status Date / Time Penicillins Allergy Mild UNKNOWN - Verified 10/23/23 06:34 A CHILD atorvastatin Allergy Unknown MUSCLE Verified 10/23/23 06:34 WEAKNESS Home Medications Medication Instructions Recorded Confirmed Type atorvastatin 10 mg tablet 10 mg PO EVERY OTHER DAY 02/03/20 10/23/23 History ezetimibe 10 mg tablet 10 mg PO DAILY 02/03/20 10/23/23 History losartan 50 mg tablet 50 mg PO DAILY 02/03/20 10/23/23 History aspirin 81 mg tablet,delayed 81 mg PO DAILY 02/06/20 10/23/23 History release cyanocobalamin (vitamin B-12) 5,000 mcg sublingual DAILY 02/06/20 10/23/23 History 5,000 mcg sublingual tablet (Vitamin B-12) hydrocodone 5 mg-acetaminophen 325 1 tablet PO Q12H PRN pain #14 tabs 10/15/23 10/23/23 Rx mg tablet ondansetron 4 mg disintegrating 4 mg PO Q8H PRN nausea and 10/15/23 10/23/23 Rx tablet vomiting #20 tabs tamsulosin 0.4 mg capsule (Flomax) 0.4 mg PO DAILY 7 days #7 caps 10/15/23 10/23/23 Rx acetaminophen 500 mg tablet 500 mg PO Q6H PRN Pain 10/21/23 10/23/23 History berberine-herbal comb no.18 capsule 2 cap PO DAILY 10/21/23 10/23/23 History multivitamin with iron-mineral 1 tablet PO DAILY 10/21/23 10/23/23 History Patient hx anesthesia problems: none Family hx anesthesia problems: none Results Review: All pre-operative results and documents have been reviewed as part of the pre-operative evaluation. [facility] Past Medical History Medical History (Updated 10/22/23 @ 15:22 by Italo Ashraf DO) HTN (hypertension) Hyperlipidemia Nephrolithiasis TERELL (obstructive sleep apnea) CPAP Prostate cancer Surgical History Surgical History (Updated 10/22/23 @ 15:22 by Italo Ashraf DO) H/O prostatectomy History of repair of hiatal hernia Hx of cholecystectomy Family History Family History Other Diabetes mellitus Family history of malignant neoplasm Hypertension Social History Social History Smoking status: Never smoker Second hand tobacco smoke exposure: No Alcohol intake: current Alcohol use details: VERY RARE - 1 OR 2X YEAR Substance use: never Substance use type: does not use Living arrangements: with family Spiritual care concerns: No Anes - Eval Final PreProcedure Day of Procedure 10/22/23 15:21 Patient weight: obese Heart: regular rate and rhythm Lungs: clear to auscultation Airway: Mallampati scale class II Neurological: alert and oriented Last oral intake: >/= 8 hours ASA classification: III Emergent: no Anesthetic plan: proceed Anesthesia type and monitoring: general LMA and standard monitoring Results Review: All pre-operative results and documents have been reviewed as part of the pre-operative evaluation. Informed Consent: The patient's anesthetic plan and its attendant risks and benefits were discussed with the patient/family/POA. Questions were solicited and answers provided to the satisfaction of the patient/family/POA.
[2023-10-23] VITALS (7 sets, daily range): BP systolic 110–126; BP diastolic 78–95; PULSE 64–88; RESP 16–23; TEMP 36.7–36.8; O2SAT 97–100
--- NOTE | ~2023-10-23 | XR_ITS ---
Supine and upright views of the abdomen Clinical history: Lithotripsy COMPARISON: 10/15/2023 Findings: Bowel gas pattern is nonspecific. No evidence for obstruction or free air. Pelvic surgical clips and calcified pelvic phleboliths are unchanged. Possible mid right ureteral stone projecting ju st inferior to the right L3 transverse process. Multiple small left renal stones are present. Osseous structures are intact. Impression: Several small left renal stones. Possible mid right ureteral stone projecting just inferior to the right L3 transverse process. Reviewed, dictated and finalized at location [facility]. CTOR PEDIATRIC Impression: Several small left renal stones. Possible mid right ureteral stone projecting just inferior to the right L3 ariza sverse process.
--- NOTE | 2023-10-23 06:30 | WPDHPUPDATE1 ---
History and Physical Update Update Date/Time: 10/23/23 06:30 History and Physical has been reviewed, including an updated exam of the patient. There are NO changes in the patient's condition. Risks, benefits, and alternatives have been discussed and questions answered. Patient agrees to proceed with procedure.
[2023-10-23] MEDS: LACTATED RINGERS 1,000 ML 30 ML IV CONT (07:10)
[2023-10-23] MEDS: ceFAZolin 2 GM/D5W 50 ML 2 GM/50 ML BAG IVPB (07:27)
--- NOTE | 2023-10-23 08:09 | W.PM.PROC2 ---
Procedure Note - Detailed Date of Procedure 10/23/23 Pre-op Diagnosis Right ureteral stone Post-op Diagnosis Same Procedure Performed Right ESWL Surgeon Martin Rivera MD Anesthesia General Description of Procedure The patient was brought to the operative suite where he was placed in the supine position on the Dornier lithotripsy table. The focal point of the lithotripter was placed at a 7mm right mid-ureteral calculus. A total of 3000 shocks were delivered at a power setting of 6. There appeared to be good fragmentation of the stone. The patient tolerated the procedure well and was taken to the recovery room in good condition. Pathology None sent Complications No immediate complications Condition Stable
== END 2023-10-23 09:48 | disposition home or self-care (01) ==
PROVIDERS: PCP Family Medicine Sports Medicine; Visit Provider Urology
PROC: (CPT 50590; principal; 2023-10-23 07:30)
DX: N20.1 Calculus of ureter (principal); E78.5 Hyperlipidemia, unspecified
CPT/HCPCS: 50590; 36415; 74018; 81001; 85610; 85730; 93005; J0690; J1100; J2250; J2405; J2704; J3010; J7120

== ENCOUNTER → 2023-11-05 11:00 | Outpatient (CLI) | payer OTHER, SELFPAY ==
--- NOTE | ~2023-11-05 | CT_ITS ---
Non-contrast CT scan of the Abdomen and Pelvis Clinical indication: Renal stone Technique: 2.5 mm axial scans were obtained through the abdomen and pelvis without intravenous or or al contrast. Dose reduction technique was used on this scan by utilizing automated exposure control a nd iterative reconstruction technique. The dose-length product (DLP) was 1018.74 mGy-cm. Findings: Images through the lung bases reveal [id number] hiatal hernia. There is a 5 mm mid right ureteral stone (axial image 89. There is an additional 5 mm distal right ur eteral stone (axial image 108). There is mild right hydroureteronephrosis. There are multiple additio nal small bilateral nonobstructing renal stones. No left ureteral stone or left hydronephrosis. The liver, spleen, pancreas, gallbladder, and adrenals appear normal. There is no aortic aneurysm. There is no evidence of bowel obstruction. Images through the pelvis were performed. There is no evidence of ascites or lymphadenopathy. Urinary bladder unremarkable. Patient appears to be status post prostatectomy. Small fat-containing left ing uinal hernia present. Impression: Two 5 mm right ureteral stones, one at the mid ureter, and one at the distal ureter, as detailed abov e. Associated mild right hydroureteronephrosis. Multiple additional small bilateral nonobstructing renal stones. 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 Associated mild right hydroureteronephrosis. Multiple additional small bilateral nonobstructing renal stones.
== END ==
PROVIDERS: PCP Family Medicine Sports Medicine; Visit Provider Urology
DX: N20.2 Calculus of kidney with calculus of ureter (principal)
CPT/HCPCS: 74176

== ENCOUNTER 2024-05-24 10:56 | Outpatient (CLI) | payer OTHER, SELFPAY ==
--- NOTE | ~2024-05-24 | XR_ITS ---
XR abdomen/kub 1V Ordering provider: Martin Rivera MD History: . N20.1 - Calculus of ureter, PAIN IN LOWER LEFT SIDE . Comparison: October 23, 2023 FINDINGS: BOWEL: Nonobstructive bowel gas pattern. ORGANOMEGALY: None. SIGNIFICANT PATHOLOGIC CALCIFICATIONS: Tiny calcifications in the left kidney. OTHER: No free air is seen under the diaphragm. Postoperative changes in the pelvis. IMPRESSION: NO ACUTE ABDOMINAL FINDINGS. Tiny stones in the left kidney. Reviewed, dictated and finalized at location A.
== END 2024-05-24 10:57 | disposition home or self-care (01) ==
PROVIDERS: PCP Family Medicine Sports Medicine; Visit Provider Urology
DX: N20.0 Calculus of kidney (principal)
CPT/HCPCS: 74018

== ENCOUNTER 2025-01-22 10:14 | Emergency (ER) | payer OTHER, SELFPAY ==
--- NOTE | 2025-01-22 10:38 | ED.GENADULT ---
HPI - General Adult General Chief complaint: Upper Respiratory Infection Stated complaint: sore throat, ear ache,cough, head hurts Time Seen by Provider: 01/22/25 10:38 Source: patient Mode of arrival: ambulatory Limitations: no limitations History of Present Illness HPI narrative: 69-year-old male patient presents to the [facility] with complaints of flu-like symptoms for the past 2-3 days. Patient denies any fevers. the patient states he has had some slight body aches, sore throat, congestion feels like his ears are full. Patient states last night he did experience some left-sided chest tightness but that has since resolved. Patient denies any shortness of breath or chest pain at this time. Denies any abdominal pain, nausea, vomiting or diarrhea. Patient states he has been taking [id number] Tylenol, Benadryl for his symptoms Related Data Home Medications ?Medication ?Instructions ?Recorded ?Confirmed ?Last Taken ?Type atorvastatin 10 mg tablet 10 mg PO EVERY OTHER DAY 02/03/20 10/23/23 10/22/23 20:00 History ezetimibe 10 mg tablet 10 mg PO DAILY 02/03/20 10/23/23 10/22/23 20:00 History losartan 50 mg tablet 50 mg PO DAILY 02/03/20 10/23/23 10/22/23 20:00 History aspirin 81 mg tablet,delayed 81 mg PO DAILY 02/06/20 10/23/23 10/16/23 History release cyanocobalamin (vitamin B-12) 5,000 mcg sublingual DAILY 02/06/20 10/23/23 10/16/23 History 5,000 mcg sublingual tablet (Vitamin B-12) acetaminophen 500 mg tablet 500 mg PO Q6H PRN Pain 10/21/23 10/23/23 10/22/23 09:00 History berberine-herbal comb no.18 capsule 2 cap PO DAILY 10/21/23 10/23/23 10/16/23 History multivitamin with iron-mineral 1 tablet PO DAILY 10/21/23 10/23/23 10/16/23 History Allergies Allergy/AdvReac Type Severity Reaction Status Date / Time Penicillins Allergy Mild UNKNOWN - Verified 01/22/25 10:40 A CHILD atorvastatin Allergy Unknown MUSCLE Verified 01/22/25 10:40 WEAKNESS Review of Systems Review of Systems: CONSTITUTIONAL: Denies fever, chills, or sweats. positive body aches EYES: Denies visual changes, redness, or discharge. ENT: positive rhinorrhea, congestion, sore throat, positive bilateral otalgia. CARDIOVASCULAR: positive left-sided chest pain, denies palpitations, or edema. RESPIRATORY: positive cough , denies dyspnea. GASTROINTESTINAL: Denies abdominal pain, nausea, vomiting, or diarrhea. GENITOURINARY: Denies dysuria or hematuria. SKIN: Denies rash or itching. MUSCULOSKELETAL: Denies back pain, joint pain, or myalgia. NEUROLOGIC: Denies headache, numbness, or weakness. PSYCHIATRIC: Denies anxiety or depression. [facility] Past Medical History Medical History TERELL (obstructive sleep apnea) CPAP Hyperlipidemia HTN (hypertension) Prostate cancer Nephrolithiasis Surgical History Surgical History History of repair of hiatal hernia H/O prostatectomy Hx of cholecystectomy Family History Family History Other Diabetes mellitus Family history of malignant neoplasm Hypertension Social History Social History Smoking status: Never smoker Second hand tobacco smoke exposure: No Alcohol intake: current Alcohol use details: VERY RARE - 1 OR 2X YEAR Substance use: never Substance use type: does not use Living arrangements: with family Spiritual care concerns: No Comments At the time of my signature I agree with nursing past medical history, surgical, social, and family history. There is no relevant family history pertinent to the presenting complaint. Exam Narrative: GENERAL: Well-appearing, well-nourished, and in no acute distress. HEAD: Normocephalic, atraumatic. EYES: PERRLA and EOMI. ENT: Nares with erythema edema noted bilaterally, no rhinorrhea or epistaxis. Mucous membranes moist. posterior pharynx with slight erythema but no tonsillar enlargement, no exudates or lesions present. Bilateral TMs are clear with no erythema or foreign bodies the canal. A little bit of fluid noted behind the TM. NECK: Supple. No lymphadenopathy CHEST: Clear to auscultation. No respiratory distress. HEART: Regular rate and rhythm. No murmur heard. Normal peripheral pulses. ABDOMEN: Soft, nontender, nondistended, normal active bowel sounds. EXTREMITIES: Normal range of motion. No edema. SKIN: Warm, dry, no rash. NEURO: No focal deficits. Alert and oriented x3. Course Course Level of Care: Express Care Visit Vital Signs Vital signs: Vital Signs Temperature 36.7 C 01/22/25 10:43 Pulse Rate 82 01/22/25 10:43 Respiratory Rate 18 01/22/25 10:43 Blood Pressure 143/88 H 01/22/25 10:43 Pulse Oximetry 97 01/22/25 10:43 Oxygen Delivery Room Air 01/22/25 10:43 Temperature 36.7 C 01/22/25 10:43 Pulse Rate 82 01/22/25 10:43 Respiratory Rate 18 01/22/25 10:43 Blood Pressure 143/88 H 01/22/25 10:43 Pulse Oximetry 97 01/22/25 10:43 Oxygen Delivery Room Air 01/22/25 10:43 Vital signs reviewed Medical Decision Making MDM Narrative Medical decision making narrative: Discussed with patient that his point of care testing for influenza, COVID and strep all resulted negative. We will send the strep culture to lab for further testing and if it does come back positive we will call him in an antibiotic at that time. Discussed with patient would like to check an EKG on him since he was complaining of left-sided chest pain if that looks okay most likely will discharge him home and encourage [id number] medication to help with his symptoms. Patient verbalized understanding denies any other questions or concerns at this time. Differential Diagnosis Differential Diagnosis: differential diagnosis: Allergic rhinitis, chronic sinusitis, tonsillitis, acute sinusitis, infectious mononucleosis, seasonal influenza, pertussis, diphtheria, meningococcal disease, viral syndrome, viral bronchitis, RSV, COVID-19 Vital Signs Vital Signs: Vital Signs Temperature 36.7 C 01/22/25 10:43 Pulse Rate 82 01/22/25 10:43 Respiratory Rate 18 01/22/25 10:43 Blood Pressure 143/88 H 01/22/25 10:43 Pulse Oximetry 97 01/22/25 10:43 Oxygen Delivery Room Air 01/22/25 10:43 Temperature 36.7 C 01/22/25 10:43 Pulse Rate 82 01/22/25 10:43 Respiratory Rate 18 01/22/25 10:43 Blood Pressure 143/88 H 01/22/25 10:43 Pulse Oximetry 97 01/22/25 10:43 Oxygen Delivery Room Air 01/22/25 10:43 Lab Data Labs: Lab Results 01/22/25 01/22/25 Range/Units 10:57 11:02 POC Influenza A Ag Negative (Negative) POC Influenza B Ag Negative (Negative) POC SARS CoV-2 Ag Negative (Negative) POC Grp A Strep Screen Negative (Negative) ECG Data EKG #1: Attestation: I personally reviewed and interpreted this ECG as follows: ECG completion date: 01/22/25 ECG completion time: 11:19 Prior ECG tracings: not available for review Interpretation: Vent rate: 83 VA interval: 163 QRS duration: 97 QT/ QTC: 358/398 P-R- T axis: 53, 44, 42. Sinus rhythm. Normal ECG. Unconfirmed report. Critical Care Time Critical Care Time Critical Care Time: No Discharge Plan Discharge Clinical Impression: Viral URI with cough, Pharyngitis Patient Disposition: Home, Self-Care Condition: Stable Instructions: Antibiotic Form, Viral Syndrome (ED) Additional Instructions: Viral illness may last between 7-12days; antibiotic is NOT recommended at this time. Recommend antihistamine such as Benadryl at night time and Claritin/Zyrtec/Mary during the day Cough syrup may cause drowsiness; avoid driving or take it at night time. may take [id number] Coricidin HBP to help with symptoms since you do have high blood pressure Also, recommend symptomatic treatment includes: rest, fluids, and increase humidity of the air at home. Recommend Acetaminophen or nonsteroidal anti-inflammatory agents (NSAIDs) as directed in the bottle to reduce fever and/pain/headache. Avoid smoking/second-hand smoke. Limit visits to areas with large crowds. Please schedule a follow-up visit with your personal physician for further evaluation and treatment within 3-5days. Including recheck and discussion of your blood pressure. If your symptoms persist, change or worsen significantly before you can contact your personal physician then please, without delay, go to the emergency department for further evaluation. Patient Language: Hebrew Prescriptions: No Action aspirin 81 mg Tablet,Delayed Release (Dr/Ec) 81 mg PO DAILY cyanocobalamin (vitamin B-12) [Vitamin B-12] 5,000 mcg Tablet, Sublingual 5,000 mcg SUBLINGUAL DAILY losartan 50 mg tablet 50 mg PO DAILY atorvastatin 10 mg tablet 10 mg PO EVERY OTHER DAY ezetimibe 10 mg tablet 10 mg PO DAILY acetaminophen 500 mg Tablet 500 mg PO Q6H PRN (Reason: Pain) multivitamin with iron-mineral Tablet 1 tablet PO DAILY berberine-herbal comb no.18 Capsule 2 cap PO DAILY Follow-up/Referrals: Sierra,Nando Brand MD [Primary Care Provider] - Time of Disposition: 11:19
[2025-01-22 10:43] VITALS: BP 143/88; PULSE 82; RESP 18; TEMP 36.7; O2SAT 97
[2025-01-22 11:00] LABS: EDSTREPNEGPOS1 Negative (Negative)
[2025-01-22 11:04] LABS: EDCOVIDSCREEN Negative (Negative)
[2025-01-22 11:05] LABS: EDINFLUASCREEN Negative (Negative); EDINFLUBSCREEN Negative (Negative)
== END 2025-01-22 11:22 | disposition home or self-care (01) ==
PROVIDERS: Emergency Provider Nurse Practitioner Family; PCP Family Medicine Sports Medicine
DX: J06.9 Acute upper respiratory infection, unspecified (principal); B97.89 Other viral agents as the cause of diseases classified elsewhere; E78.5 Hyperlipidemia, unspecified; I10 Essential (primary) hypertension; Z85.46 Personal history of malignant neoplasm of prostate; Z20.822 Contact with and (suspected) exposure to COVID-19
CPT/HCPCS: 87081; 87426; 87804; 87880; 93005; 99213; G0463

== ENCOUNTER 2025-05-25 14:12 | Outpatient (CLI) | payer OTHER, SELFPAY ==
--- NOTE | ~2025-05-25 | CT_ITS ---
Non-contrast CT scan of the Abdomen and Pelvis Clinical indication: Kidney stone Technique: 2.5 mm axial scans were obtained through the abdomen and pelvis without intravenous or or al contrast. Dose reduction technique was used on this scan by utilizing automated exposure control a nd iterative reconstruction technique. The dose-length product (DLP) was 919.20 mGy-cm. COMPARISON: 09/05/2023 Findings: Images through the lung bases reveal moderate to large paraesophageal hernia. Bilateral nonobstructing renal stones are present, more numerous and located in the right. Largest st one measures up to 5 mm in diameter. No ureteral stone or hydronephrosis on either side. The liver, spleen, pancreas, gallbladder, and adrenals appear normal. There is no aortic aneurysm. There is no evidence of bowel obstruction. Images through the pelvis were performed. There is no evidence of ascites or lymphadenopathy. No blad lyly unremarkable. Status post prostatectomy. No pelvic mass. Impression: Bilateral nonobstructing renal stones, as detailed above. No ureteral stone or hydronephrosis. Status post prostatectomy. 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 Reviewed, dictated and finalized at [facility]. Impression: Bilateral nonobstructing renal stones, as detailed above. No ureteral stone or hydronephrosis. Status post prostatectomy. 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
--- NOTE | ~2025-05-25 | XR_ITS ---
XR abdomen/kub 1V 05/25/2025 14:30 Indication: Renal stone Procedure: KUB Comparison: Comparison to multiple prior studies sequentially, with oldest reviewed study dated 05/2020. Findings: Bowel gas pattern nonobstructive. There are surgical changes of the abdomen and pelvis. The re are multiple pelvic phleboliths. There are bilateral renal stones. Impression: 1: Bilateral nephrolithiasis. Reviewed, dictated and finalized at location A. Impression: 1: Bilateral nephrolithiasis.
== END 2025-05-25 14:13 | disposition home or self-care (01) ==
LOC: MICIMG 14:13
PROVIDERS: PCP Family Medicine Sports Medicine; Visit Provider Urology
DX: N20.0 Calculus of kidney (principal)
CPT/HCPCS: 74018; 74176

== ENCOUNTER 2025-06-01 11:19 | Outpatient (CLI) | payer OTHER, SELFPAY ==
--- OUTSIDE RECORDS SUMMARY | 2025-06-01 11:29 | XMS_ITS | Encounter Summary ---
Author Organization [facility] Address [address] [place] [address] Care Team Providers Care Unix Manager Name Role Phone Iglesia Moreno MD Primary Care Provider U Vaishali Desouza NP Primary Care Provider [phone] Elvira Cantu MD Primary Care Provider [phone] Nando Esquivel MD Primary Care Provider [phone] Encounter Details Date Type Department Care Team (Late st Contact Info) Description 10/05/2018 Abstract [facility] CONVERSION [address] [place] [address] , Generic MD Odalys Social History Tobacco Use Types Packs/Day Years Used Date Smoking Tobacco: Never Assessed Sex and Gender Information Value Date Recorded Sex Assigned at Male 09/20/2020 8:39 AM CDT Legal Sex Male 9:25 PM CDT Gender Identity Male 09/20/2020 8:39 AM CDT Sexual Orientation Straight 09/20/2020 8: 39 AM CDT documented as of this encounter Plan of Treatment Upcoming Encounters Date Type Department Care Team (Late st Contact Info) Description 07/13/2025 4:00 PM CDT Office Visit [facility] Family & Internal Medicine [facility] [address] [place] [address] Nando Esquivel MD [address] [address] documented as of this encounter Visit Diagnoses Not on filedocumented in this encounter Additional Health Concerns Infection Onset Date Last Indicated Resolved Time COVID-19 Rule Out 10/25/2020 10/25/2020 10/25/2020 2:10 PM LOAN UNDERWRITER COVID-19 Confirmed 10/25/2020 10/25/2020 12:33 AM LOAN UNDERWRITER COVID-19 Rule Out 11/27/2021 11/27/2021 11/27/2021 11:49 AM LOAN UNDERWRITER COVID-19 Rule Out 08/19/2023 07/28/2023 08/19/2023 10:44 AM CDT COVID-19 Rule Out 10/01/2023 10/01/2023 10/01/2023 11:52 AM LOAN UNDERWRITER COVID-19 Rule Out 11/05/2023 11/05/2023 11/05/2023 12:36 PM LOAN UNDERWRITER COVID-19 Rule Out 11/05/2023 11/05/2023 11/05/2023 12:40 PM LOAN UNDERWRITER COVID-19 Rule Out 11/05/2023 11/05/2023 11/05/2023 2:15 PM LOAN UNDERWRITER documented as of this encounter Care Teams Unix Manager Relationship Specialty Start Date End Date Iglesia Moreno MD PCP - General INTERNAL MEDICINE 03/10/19 02/26/23 Vaishali Lundy ALL SOURCE INTELLIGENCE TECHNICIAN [address] [place] [address] PCP - General Nurse Practitioner Family 02/27/2304/24 [place] [address] [place] [address] PCP - General FAMILY PRACTICE 05/18/23 06/07/23 [place] [address] [place], [place] [id number] PCP - General FAMILY PRACTICE 06/08/23 documented as of this encounter
--- OUTSIDE RECORDS SUMMARY | 2025-06-01 11:29 | XMS_ITS | Referral Summary ---
Author Organization [facility] Address [address] [place] [address] Care Team Providers Care Panel Lay Up Worker Name Role Phone Nando Esquivel MD Primary Care Provider + Allergies Active Allergy Reactions Criticality Noted Date Comments Penicillins Unknown Low 06/25/2007 Remote allergy Oxxkvlg-Ayv-Uyt Reductase Inhibitors Other (See comments) Low 01/16/2016 Weakness in large doses Medications aspirin 81 mg tablet Take 1 tablet (81 mg total) by mouth daily Act marine multivitamin tabletIndicati ons:Vitamin Deficiency Prevention Take 1 tablet by mouth daily Active UNABLE TO FIND Inject 5 mL as directed daily PGE-140MCG/ML; 5ML VIAL; INJECT INTRACAVERNOSALLY DIRECTED Alprostadil 50 mg (also known as prostaglandin) 01/31/20 10 Active cyanocobalamin , vitamin B-12, 5,000 mcg tablet,disinte gratingIndicat ions:Preventio n of Vitamin B12 Deficiency Take 1 tablet by mouth daily Active ezetimibe (ZETIA) 10 mg tablet Take 1 tablet (10 mg total) by mouth daily. 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 History of colon polyps 09/25/2021 Overview (09/25/2021): Added automatically from request for surgery [id number] History of Mendoza's esophagus 09/25/2021 Overview (09/25/2021): Added automatically from request for surgery [id number] Spondylosis of lumbar spine 04/15/2021 Encounter for screening colo noscopy for xcx-hazw-awjj patient 08/24/2018 Overview (08/24/2018): Added automatically from request for surgery [id number] Odynophagia 07/13/2018 Overview (07/13/2018): Added automatically from request for surgery [id number] Hypertension 07/11/2018 Assessment & Plan (07/13/2019 2:33 PM CDT): Blood pressure is under excellent control on the current medical regimen. We will make no changes to his regimen. He will continue with lifestyle modifications. He is up-to-date on labs with his primary care physician. Hyperlipidemia 07/11/2018 Immunizations Immunization Administration Dates Next Due Influenza, Quadrivalent, Spl it, Preservative Free, Intramuscular 10/06/2020,09/10/2016 Influenza, Trivalent, IM (MDV) 09/08/2013,2011 Influenza, Trivalent, Preser vative Free, Intramuscular 10/20/2015 Influenza, Unspecified 09/08/2019,2018,09/01/2018,08/30,08/31/2017,11/08/2014 Social History Tobacco Use Types Packs/Day Years Used Date Smoking Tobacco: Never Smokeless Tobacco: Never Alcohol Use Standard Drinks/Week Comments Yes 0 (1 standard drink = 0.6 oz pur e alcohol) rarely AUDIT-C Answer Date Recorded Q1: How often do you have a drink containing alcohol? Never 10/24/2024 Q2: How many drinks containi ng alcohol do you have on a typical day when you are drinking? Patient does not drink Q3: How often do you have si x or more drinks on one occasion? Never 10/24/2024 Personal Safety Answer Date Recorded Have you ever been in or are you currently in a harmful physical or emotional relationship or is someone making you feel afraid or unsafe? Denies 10/31/2024 Sex and Gender Information Value Date Recorded Sex Assigned at Not on file Legal Sex Male 8:52 PM AREA COORDINATOR Gender Identity Not on file Sexual Orientation Not on file Last Filed Vital Signs Vital Sign Reading Time Taken Comments Blood Pressure 109/66 10/31/2024 3:10 PM AREA COORDINATOR Pulse 71 10/31/2024 3:10 PM AREA COORDINATOR Temperature 36.9 C (98.4 F) 10/31/2024 11:53 AM AREA COORDINATOR Respiratory Rate 16 10/31/2024 3:10 PM AREA COORDINATOR Oxygen Saturation 100% 10/31/2024 3:10 PM AREA COORDINATOR Inhaled Oxygen Concentration - - Weight 109.8 kg (242 lb) 10/31/2024 11:53 AM AREA COORDINATOR Height 182.9 cm (6') 10/31/2024 11:53 AM AREA COORDINATOR Body Mass Index 32.82 10/31/2024 11:53 AM AREA COORDINATOR Plan of Treatment Not on file Procedures Procedure Name Priority Date/Time Associated Diagnosis Comments COLONOSCOPY 10/31/2024 2:11 PM AREA COORDINATOR PSA DIAGNOSTIC Routine Gen Lab 04/22/2017 11:44 AM CDT from Last 3 Months or Most Recently Relevant to Health Maintenance Results * Colonoscopy (10/31/2024 2:11 PM AREA COORDINATOR) Anatomical Region Laterality Modality Other Narrative Procedure Note Soco Boo MD - 10/31/2024 2:11 PM CST ENDOSCOPY LAB Patient Name: Kirill Duran Procedure Date: 10/31/2024 2:11 PM Admit Type: Outpatient Room: [facility] Date of : 1955 Instrument Name: [id number] Gender: Male Note Status: Finalized Procedure: Colonoscopy Indications: High risk colon cancer surveillance: Personalhistory of adenoma less than 10 mm in size, Lastcolonoscopy: October 2021 Providers: Soco Boo M.D. Referring MD: Iglesia Moreno M.D. Medicines: Monitored Anesthesia Care Complications: No immediate complications. Estimated Blood Loss: Estimated blood loss: none. Procedure: Pre-Anesthesia Assessment: - Prior to the procedure, a History and Physicalwas performed, and patient medications and allergieswere reviewed. The patient's tolerance of previous anesthesia was also reviewed. The risks andbenefits of the procedure and the sedation options and risks were discussed with the patient. All questions were answered, and informed consent was obtained. Prior Anticoagulants: The patient has taken noanticoagulant or antiplatelet agents. ASA Grade Assessment: III -A patient with severe systemic disease. Afterreviewing the risks and benefits, the patient was deemed in satisfactory condition to undergo the procedure. - The risks and benefits of the procedure and the sedation options and risks were discussed with the patient. All questions were answered and informed consent was obtained. The benefits, risks and alternatives of theprocedure and sedation were discussed and informed consentwas obtained. All questions were answered. Please referto the signed informed consent document in the medical record. The scope was passed under direct vision.The Colonoscope was introduced through the anus and advanced to the the cecum, identified byappendiceal orifice and ileocecal valve. The colonoscopy was performed without difficulty. The patient tolerated the procedure well. The quality of the bowel preparation was evaluated using the BBPS (BostonBowel Preparation Scale) with scores of: Right Colon = 3, Transverse Colon = 3 and Left Colon = 3 (entiremucosa seen well with no residual staining, smallfragments of stool or opaque liquid). The total BBPS score equals 9. The ileocecal valve, appendiceal orifice, and rectum were photographed. The bowel preparation used was GoLYTELY via split dose instruction. Findings: The perianal and digital rectal examinations were normal. A few small-mouthed diverticula were found in the sigmoid colon. A 3 mm polyp was found in the rectum. The polyp was sessile. Thepolyp was removed with a cold snare. Resection and retrieval werecomplete. External and internal hemorrhoids were found during retroflexion. The hemorrhoids were small. Impression: - Diverticulosis in the sigmoid colon. - One 3 mm polyp in the rectum, removed with a cold snare. Resected and retrieved. - External and internal hemorrhoids. Recommendation: - Patient has a contact number available for emergencies. The signs and symptoms of potential delayed complications were discussed with thepatient. Return to normal activities tomorrow. Written discharge instructions were provided to thepatient. - Discharge patient to home (with escort). - Resume previous diet. - Continue present medications. - Await pathology results. - Repeat colonoscopy in 5 years for surveillance. - In the unusual situation that you developabdominal pain, bleeding or other significant problems in the days following this procedure please call my officeat [phone] to speak to my nurse, Raeann Milligan.After hours and evenings please call [phone] andspeak to the GI fellow relocation commissioner. Please tell them that Dr. Boo did your procedure and that you wereinstructed to have the fellow call me or the physiciancovering for me to discuss the management of your condition.If you have an urgent problem, [facility] and have the ER doctor call myoffice during the day or the GI Fellow after hours and weekends to arrange admission or transfer to our facility. Electronically signed by Soco Boo MD Soco Boo M.D. 10/31/2024 2:42:22 PM Number of Addenda: 0 Note Initiated On: 10/31/2024 2:11 PM Scope Withdrawal Time: 0 hours 8 minutes 37 seconds Scope In: 2:22:56 PM Scope Out: 2:35:01 PM us Soco Boo MD ENDOSCOPY PROCEDURES Final Resu lt * (ABNORMAL) PSA diagnostic (04/22/2017 11:44 AM CDT) PSA-Total <0.1(L) 0.1 - 4.0 ng/mL [facility] Blood specimen (specimen) 04/22/2017 11:44 AM CDT 04/22/2017 12:38 PM CDT us Notinfile Unknown LAB BLOOD ORDERABLES Final Res ult [facility] Department [place] [address] from Last 3 Months or Most Recently Relevant to Health Maintenance Insurance [facility] CHOICE PLUS [facility] ADVANTAGE CHOICE PPO [facility] ADVANTAGE CHOICE PPO Advance Directives For more information, please contact: [phone] * Full Code (Latest Code Status on File) Date Activated Date Inactivated Comments 10/31/2024 11:39 AM 10/31/2024 7:29 PM * Full Code Date Activated Date Inactivated Comments 10/31/2021 9:21 AM 10/31/2021 5:47 PM * Full Code Date Activated Date Inactivated Comments 11/01/2018 7:16 AM 11/01/2018 11:13 AM * Full Code Date Activated Date Inactivated Comments 07/13/2018 12:29 PM 07/14/2018 10:54 AM Care Teams Panel Lay Up Worker Relationship Specialty [place] [address] [place] [address] PCP - General Family Medicine 10/19/23
--- OUTSIDE RECORDS SUMMARY | 2025-06-01 11:29 | XMS_ITS | Encounter Summary ---
Author Organization [facility] Address [facility] [place] [address] Care Team Providers Care Sheep Farm Manager Name Role Phone Vaishali Lundy NP Primary Care Provider [phone] Elvira Cantu MD Primary Care Provider [phone] Nando Esquivel MD Primary Care Provider [phone] Encounter Details Date Type Department Care Team (Late st Contact Info) Description 02/27/2023 [employer] Message [facility] Family & Internal Medicine [address] [address] [facility] Provider results Social History Tobacco Use Types Packs/Day Years Used Date Smoking Tobacco: Never Smokeless Tobacco: Never Alcohol Use Standard Drinks/Week Comments No 0 (1 standard drink = 0.6 oz pur e alcohol) AUDIT-C Answer Date Recorded Frequency of Alcohol Consumption Never 03/16/2019 Average Number of Drinks Not on file 019 Frequency of Binge Drinking Not on file 02/22 PHQ-2 Answer Date Recorded PHQ-2 Score - If the patient scores above 3, please move on to questions 3-9 0 11/27/2021 Education Answer Date Recorded What is the highest level of school you have completed or the highest degree you have received? Associate degree: academic program 03/16/2019 Sex and Gender Information Value Date Recorded Sex Assigned at Male 09/20/2020 8:39 AM CDT Legal Sex Male 9:25 PM CDT Gender Identity Male 09/20/2020 8:39 AM CDT Sexual Orientation Straight 09/20/2020 8: 39 AM CDT Occupation Industry Job Start Date Job End Date Not on file Not on file Not on file Not on file documented as of this encounter Plan of Treatment Upcoming Encounters Date Type Department Care Team (Late st Contact Info) Description 07/13/2025 4:00 PM CDT Office Visit [facility] Family & Internal Medicine [facility] [address] [place] [address] Nando Esquivel MD [address] [facility] [address] [place] [address] documented as of this encounter Visit Diagnoses Not on filedocumented in this encounter Additional Health Concerns Infection Onset Date Last Indicated Resolved Time COVID-19 Rule Out 08/19/2023 07/28/2023 08/19/2023 10:44 AM CDT COVID-19 Rule Out 10/01/2023 10/01/2023 10/01/2023 11:52 AM IS/IT PROJECT MANAGER COVID-19 Rule Out 11/05/2023 11/05/2023 11/05/2023 12:36 PM IS/IT PROJECT MANAGER COVID-19 Rule Out 11/05/2023 11/05/2023 11/05/2023 12:40 PM IS/IT PROJECT MANAGER COVID-19 Rule Out 11/05/2023 11/05/2023 11/05/2023 2:15 PM IS/IT PROJECT MANAGER Assessment Noted Time PHQ-9 Depression Total Score: 0 11/27/19 10:59 AM IS/IT PROJECT MANAGER documented as of this encounter Care Teams Sheep Farm Manager Relationship Specialty Start [place] [address] [facility] [address] [place] [address] PCP - General Nurse Practitioner Family 02/27/23 604/14 [place] [address] [facility]. [address] [place] [address] PCP - General FAMILY PRACTICE 05/18/23 06/07/23 [place] [address] [place] [address] PCP - General FAMILY PRACTICE 06/08/23 documented as of this encounter
--- OUTSIDE RECORDS SUMMARY | 2025-06-01 11:29 | XMS_ITS | Encounter Summary ---
Author Organization [facility] Address [facility] [place] [address] Care Team Providers Care Mask Designer Name Role Phone Iglesia Moreno MD Primary Care Provider U Vaishali Desouza NP Primary Care Provider [phone] Elvira Cantu MD Primary Care Provider [phone] Nando Esquivel MD Primary Care Provider [phone] Encounter Details Date Type Department Care Team (Late st Contact Info) Description 10/29/2021 MyChart Message Enc [facility] Family & Internal Medicine [address] [address] Mychart, [facility] Provider MyChart Social History Tobacco Use Types Packs/Day Years [...] please move on to questions 3-9 0 01/16/2021 Education Answer Date Recorded What is the [...] file Not on file Not on file COVID-19 Exposure Response Date Recorded In the last month, have you been in contact with someone who was confirmed or suspected to have Coronavirus / COVID-19? No / Unsure 10/07/2021 9:58 AM FAMILY DEVELOPMENT EXTENSION SPECIALIST documented as of this encounter Plan of Treatment Upcoming Encounters Date Type Department Care Team (Late st Contact Info) Description 07/13/2025 4:00 PM CDT Office Visit [facility] Family & Internal Medicine [address] [address] Nando Esquivel MD [address] [address] documented as of this encounter Visit Diagnoses Not on filedocumented in this encounter Additional Health Concerns Infection Onset Date Last Indicated Resolved Time COVID-19 Rule Out 11/27/2021 11/27/2021 11/27/2021 11:49 AM FAMILY DEVELOPMENT EXTENSION SPECIALIST COVID-19 Rule Out 08/19/2023 07/28/2023 08/19/2023 10:44 AM CDT COVID-19 Rule Out 10/01/2023 10/01/2023 10/01/2023 11:52 AM FAMILY DEVELOPMENT EXTENSION SPECIALIST COVID-19 Rule Out 11/05/2023 11/05/2023 11/05/2023 12:36 PM FAMILY DEVELOPMENT EXTENSION SPECIALIST COVID-19 Rule Out 11/05/2023 11/05/2023 11/05/2023 12:40 PM FAMILY DEVELOPMENT EXTENSION SPECIALIST COVID-19 Rule Out 11/05/2023 11/05/2023 11/05/2023 2:15 PM FAMILY DEVELOPMENT EXTENSION SPECIALIST documented as of this encounter Care Teams Mask Designer Relationship Specialty Start Date End Date Iglesia Moreno MD PCP - General INTERNAL MEDICINE 03/10/19 02/26/23 Vaishali Lundy, JAIME [address] [place] [address] PCP - General Nurse Practitioner Family 02/27/2304/24 [place] [address] [place] [address] PCP - General FAMILY PRACTICE 05/18/23 06/07/23 [place] [address] [place] [address] PCP - General FAMILY PRACTICE 06/08/23 documented as of this encounter
--- OUTSIDE RECORDS SUMMARY | 2025-06-01 11:29 | XMS_ITS | Encounter Summary ---
Author Organization [facility] Address Formerly [facility] [place] [address] Care Team Providers Care Rn Hematology Name Role Phone Iglesia Moreno MD Primary Care Provider U Vaishali Desouza NP Primary Care Provider + [phone] Elvira Cantu MD Primary Care Provider [phone] Nando Esquivel MD Primary Care Provider [phone] Encounter Details Date Type Department Care Team (Late st Contact Info) Description 12/11/2021 [employer] Message Enc [facility] Medical Group Family & Internal Medicine [address] [address] [facility] Social History Tobacco Use Types Packs/Day Years [...] have Coronavirus / COVID-19? No / Unsure 11/27/2021 10:51 AM TECHNOLOGY ADOPTION MANAGER documented as of this encounter Plan of Treatment Upcoming Encounters Date Type Department Care Team (Late st Contact Info) Description 07/13/2025 4:00 PM CDT Office Visit [facility] Medical Group Family & Internal Medicine [facility] [id number] [place] [address] Nando Esquivel MD [address] [address] documented as of this encounter Visit Diagnoses Not on filedocumented in this encounter Additional Health Concerns Infection Onset Date Last Indicated Resolved Time COVID-19 Rule Out 08/19/2023 07/28/2023 08/19/2023 10:44 AM CDT COVID-19 Rule Out 10/01/2023 10/01/2023 10/01/2023 11:52 AM TECHNOLOGY ADOPTION MANAGER COVID-19 Rule Out 11/05/2023 11/05/2023 11/05/2023 12:36 PM TECHNOLOGY ADOPTION MANAGER COVID-19 Rule Out 11/05/2023 11/05/2023 11/05/2023 12:40 PM TECHNOLOGY ADOPTION MANAGER COVID-19 Rule Out 11/05/2023 11/05/2023 11/05/2023 2:15 PM TECHNOLOGY ADOPTION MANAGER Assessment Noted Time PHQ-9 Depression Total Score: 0 11/27/19 10:59 AM TECHNOLOGY ADOPTION MANAGER documented as of this encounter Care Teams Rn Hematology Relationship Specialty Start Date End Date Iglesia Moreno MD PCP - General INTERNAL MEDICINE 03/10/19 02/26/23 Vaishali Lundy, JAIME [address] [place] [address] PCP - General Nurse Practitioner Family 02/27/2304/24 [place] [address] [place] [address] PCP - General FAMILY PRACTICE 05/18/23 06/07/23 [place] [address] [place] [address] PCP - General FAMILY PRACTICE 06/08/23 documented as of this encounter
--- OUTSIDE RECORDS SUMMARY | 2025-06-01 11:29 | XMS_ITS | Encounter Summary ---
Author Organization [facility] Address [facility] [place] [address] Care Team Providers Care Speeder Machine Operator Name Role Phone Iglesia Moreno MD Primary Care Provider U Vaishali Desouza NP Primary Care Provider [phone] Elvira Cantu MD Primary Care Provider [phone] Nando Esquivel MD Primary Care Provider [phone] Encounter Details Date Type Department Care Team (Late st Contact Info) Description 11/14/2021 [employer] Message Enc [facility] Medical Group Family & Internal Medicine [address] [address] Matt, [facility] Provider Cpap Social History Tobacco Use Types Packs/Day Years [...] Description 07/13/2025 4:00 PM CDT Office Visit [facility] Medical Group Family & Internal Medicine [facility] [address] [place] [address] Nando Esquivel MD [address] [facility] [address] [place] [address] documented as of this encounter Visit Diagnoses Not on filedocumented in this encounter Additional Health Concerns Infection Onset Date Last Indicated Resolved Time COVID-19 Rule Out 11/27/2021 11/27/2021 11/27/2021 11:49 AM ZOO KEEPER COVID-19 Rule Out 08/19/2023 07/28/2023 08/19/2023 10:44 AM CDT COVID-19 Rule Out 10/01/2023 10/01/2023 10/01/2023 11:52 AM ZOO KEEPER COVID-19 Rule Out 11/05/2023 11/05/2023 11/05/2023 12:36 PM ZOO KEEPER COVID-19 Rule Out 11/05/2023 11/05/2023 11/05/2023 12:40 PM ZOO KEEPER COVID-19 Rule Out 11/05/2023 11/05/2023 11/05/2023 2:15 PM ZOO KEEPER documented as of this encounter Care Teams Speeder Machine Operator Relationship Specialty Start Date End Date Iglesia Moreno MD PCP - General INTERNAL MEDICINE 03/10/19 02/26/23 [place] [address] [facility] [address] [place] [address] PCP - General Nurse Practitioner Family 02/27/2304/14 [place] [address] [place] [address] PCP - General FAMILY PRACTICE 05/18/23 06/07/23 [place] [address] [place] [address] PCP - General FAMILY PRACTICE 06/08/23 documented as of this encounter
--- OUTSIDE RECORDS SUMMARY | 2025-06-01 11:29 | XMS_ITS | Clinical Summary ---
Author Organization [facility] Address [address] [place] [address] Care Team Providers Care Mines Safety Engineer Name Role Phone Nando Esquivel MD Primary Care Provider + Allergies Active Allergy Reactions Criticality Noted Date Comments Penicillins Unknown Low 06/25/2007 Remote allergy Skzxqae-Dxy-Gzr Reductase Inhibitors Other (See comments) Low 01/16/2016 [...] mg tablet 10/15/20 21 Active vit D3-vit A-yyevieipf-nk ps [id number] diyi-raw-nj-mg tablet Take by mouth Active magnesium gluconate 200 mg tabletIndicati ons:hypomagnes emia 1 tablet (200 mg total) Active Active Problems Problem Noted Date Diagnosed Date 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 History of colon polyps 09/25/2021 Overview (09/25/2021): Added automatically from request for surgery [id number] History of Mendoza's esophagus 09/25/2021 Overview (09/25/2021): Added automatically from request for surgery [id number] Spondylosis of lumbar spine 04/15/2021 Encounter for screening colo noscopy for zzc-ipbf-qkpo patient 08/24/2018 Overview (08/24/2018): Added automatically from request for surgery [id number] Odynophagia 07/13/2018 Overview (07/13/2018): Added automatically from request for surgery [id number] Hypertension 07/11/2018 Assessment & Plan (07/13/2019 2:33 [...] vative Free, Intramuscular 10/20/2015 Influenza, Unspecified 09/08/2019,2018,09/01/2018,08/30,08/31/2017,11/08/2014 Surgical History Surgery Date Site/Laterality Comments MO UNLISTED PROCEDURE ABDOMEN PERITONEUM & OMENTUM Hernia Repair - (Added by TW Conv) MO PROSTECT RETROPUB RAD W/WO NRV SPAR & BI PLV LYM 11/23/2006 - 11/22/2007 Prostatect Retropubic Radical W/ Bilat Pelv Lymphadenectomy - 05/13/07 (Added by TW Conv) APPENDECTOMY COLONOSCOPY KIDNEY STONE SURGERY [place] FUNDOPLICATION 1990s POLYPECTOMY Medical History Medical History Date Comments Personal history of other en docrine, nutritional and metabolic disease History of hyperlipi demia - (Added by TW Conv) Other specified symptoms and signs involving the circulatory and respiratory systems Pulse irregularity - (Added by TW Conv) Dorsalgia Back pain, chron ic - (Added by TW Conv) Rash and other nonspecific skin eruption Rash - (Added by TW Conv) Personal history of other di seases of the digestive system History of Mendoza's esophag us - (Added by TW Conv) Prostate cancer (HCC) Sleep apnea Dysphagia Mendoza esophagus Hyperlipidemia Hypertension Kidney stone Colon polyp Neuropathy Family History Medical History Relation Name Comments Heart attack Brother 1 Family history of heart attack - (Added by TW Conv) Coronary artery disease Brother 2 Fami ly history of CABG - (Added by TW Conv) Esophageal cancer Father Family his tory of malignant neoplasm of esophagus - (Added by TW Conv) Hypertension Mother Family history of hypertension - (Added by TW Conv) Esophageal cancer Sister Family his tory of malignant neoplasm of esophagus - (Added by TW Conv) Relation Name Status Comments Brother 1 Brother 2 Father Mother Sister Social History Tobacco Use Types Packs/Day Years [...] on file Legal Sex Male 8:52 PM MINES SAFETY ENGINEER Gender Identity Not on file Sexual Orientation Not on file Obstetrics History Last Filed Vital Signs Vital Sign Reading Time Taken Comments Blood Pressure 109/66 10/31/2024 3:10 PM MINES SAFETY ENGINEER Pulse 71 10/31/2024 3:10 PM MINES SAFETY ENGINEER Temperature 36.9 C (98.4 F) 10/31/2024 11:53 AM MINES SAFETY ENGINEER Respiratory Rate 16 10/31/2024 3:10 PM MINES SAFETY ENGINEER Oxygen Saturation 100% 10/31/2024 3:10 PM MINES SAFETY ENGINEER Inhaled Oxygen Concentration - - Weight 109.8 kg (242 lb) 10/31/2024 11:53 AM MINES SAFETY ENGINEER Height 182.9 cm (6') 10/31/2024 11:53 AM MINES SAFETY ENGINEER Body Mass Index 32.82 10/31/2024 11:53 AM MINES SAFETY ENGINEER Plan of Treatment Health Maintenance Due Date Last Done Comments Depression Screening 1955 Hepatitis C Screening 1955 Hepatitis B Screening 1975 Pneumococcal vaccine 65+ (1 of 1 - PCV) 2007 Prostate Cancer Screening-PSA 04/22/2019 04/22/2017 Well Visit 65+ 2022 Covid-19 Vaccine (3 - 2023-2 5 season) 2024 11/19/2021, 02/23/2021 Influenza Vaccine (#1) 2025 2, 08/29/2021, 10/06/2020, Additional history exists Fall Risk Assessment 10/31/2025 10/31/2024 DTaP/Tdap/Td Vaccine (2 - Td or Tdap) 09/20/2031 09/20/2021 Colon Cancer Screening-Colonoscopy 10/31/2034 10/31/2024, 10/31/2021, 11/01/2018 Zoster Vaccine Completed 05/07/2022, 01/13/2022 Colon Cancer Screening-CT Colonography Discontinued 10/31/2024, 10/31/2021, 11/01/2018 Colon Cancer Screening-DNA Stool Discontinued 10/31/2024, 10/31/2021, 11/01/2018 Colon Cancer Screening-FIT Discontinued 10/31, 10/31/2021, 11/01/2018 Colon Cancer Screening-Sigmoidoscopy Discontinued 10/31/2024, 10/31/2021, 11/01/2018 Procedures Procedure Name Priority Date/Time Associated Diagnosis Comments COLONOSCOPY 10/31/2024 2:11 PM MINES SAFETY ENGINEER PSA DIAGNOSTIC Routine Gen Lab 04/22/2017 11:44 AM CDT from Last 3 Months or Most Recently Relevant to Health Maintenance Results * Colonoscopy (10/31/2024 2:11 PM MINES SAFETY ENGINEER) Anatomical Region Laterality Modality Other Narrative Procedure Note Soco Boo MD - 10/31/2024 2:11 PM CST ENDOSCOPY LAB Patient Name: Kirill Duran Procedure Date: 10/31/2024 2:11 PM Admit Type: Outpatient Room: [facility] Date of : 1955 Instrument Name: [id number] [...] following this procedure please call my officeat [phone] to speak to my nurse, Raeann Milligan.After hours and evenings please call [phone] andspeak to the GI fellow production worker. Please tell them that Dr. Boo did your procedure and that you wereinstructed to have the fellow call me or the physiciancovering for me to discuss the management of your condition.If you have an urgent problem, [facility] and have the ER doctor call marianna during the day or the GI Fellow [...] PSA-Total <0.1(L) 0.1 - 4.0 ng/mL VAIBHAV EDMONDS Blood specimen (specimen) 04/22/2017 11:44 AM CDT 04/22/2017 12:38 PM CDT us Notinfile Unknown LAB BLOOD ORDERABLES Final Res ult VAIBHAV EDMONDS [facility] Department [place] [address] from Last 3 Months or Most Recently Relevant to Health Maintenance Insurance [facility] CHOICE PLUS [facility] HMO/PPO Address: [address] [address] [place] [address] [facility] ADVANTAGE CHOICE PPO [facility] ADVANTAGE CHOICE PPO Advance Directives For more information, please contact: [phone] * Full Code (Latest Code Status on File) Date Activated Date Inactivated Comments 10/31/2024 11:39 AM 10/31/2024 7:29 PM * Full Code Date Activated Date Inactivated Comments 10/31/2021 9:21 AM 10/31/2021 5:47 PM * Full Code Date Activated Date Inactivated Comments 11/01/2018 7:16 AM 11/01/2018 11:13 AM * Full Code Date Activated Date Inactivated Comments 07/13/2018 12:29 PM 07/14/2018 10:54 AM Care Teams Mines Safety Engineer Relationship Specialty Start [place] [address] [place] [address] PCP - General Family Medicine 10/19/23
--- OUTSIDE RECORDS SUMMARY | 2025-06-01 11:29 | XMS_ITS | Encounter Summary ---
Author Organization [facility] Address [facility] [place] [address] Care Team Providers Care Train System Operator Name Role Phone Iglesia Moreno MD Primary Care Provider U Vaishali Desouza NP Primary Care Provider [phone] Elvira Cantu MD Primary Care Provider [phone] Nando Esquivel MD Primary Care Provider [phone] Encounter Details Date Type Department Care Team (Late st Contact Info) Description 12/04/2022 [employer] Message Enc [facility] Medical Group Family & Internal Medicine [address] [address] Matt, [facility] Provider Due for routine follow up appt Social History Tobacco Use Types Packs/Day Years [...] HOSPITAL Medical Group Family & Internal Medicine [facility] [address] [place] [address] Nando Esquivel MD [address] [facility] [address] [place] [address] documented as of this encounter Visit Diagnoses Not on filedocumented in this encounter Additional Health Concerns Infection Onset Date Last Indicated Resolved Time COVID-19 Rule Out 08/19/2023 07/28/2023 08/19/2023 10:44 AM CDT COVID-19 Rule Out 10/01/2023 10/01/2023 10/01/2023 11:52 AM GOVERNMENT AFFAIRS DIRECTOR COVID-19 Rule Out 11/05/2023 11/05/2023 11/05/2023 12:36 PM GOVERNMENT AFFAIRS DIRECTOR COVID-19 Rule Out 11/05/2023 11/05/2023 11/05/2023 12:40 PM GOVERNMENT AFFAIRS DIRECTOR COVID-19 Rule Out 11/05/2023 11/05/2023 11/05/2023 2:15 PM GOVERNMENT AFFAIRS DIRECTOR Assessment Noted Time PHQ-9 Depression Total Score: 0 11/27/19 10:59 AM GOVERNMENT AFFAIRS DIRECTOR documented as of this encounter Care Teams Train System Operator Relationship Specialty Start Date End Date Iglesia Moreno MD PCP - General INTERNAL MEDICINE 03/10/19 02/26/23 [place] [address] [facility] [address] [place] [address] PCP - General Nurse Practitioner Family 02/27/2304/24 [place] [address] [place] [address] PCP - General FAMILY PRACTICE 05/18/23 06/07/23 [place] [address] [place] [address] PCP - General FAMILY PRACTICE 06/08/23 documented as of this encounter
--- OUTSIDE RECORDS SUMMARY | 2025-06-01 11:29 | XMS_ITS | Clinical Summary ---
Author Organization [facility] Address [address] [place] [address] Care Team Providers Care Sonar Technician Name Role Phone Nando Esquivel MD Primary Care Provider Allergies Active Allergy Reactions Criticality Noted Date Comments Penicillins Rash Low 10/13/2013 Statins Other (see comment) Low 01/16/2016 Weakness in large doses Medications aspirin 81 MG tablet Take 1 tablet (81 mg total) by mouth daily. 10/13/20 13 Active Cyanocobalamin (VITAMIN B-12) 5000 MCG TABLET DISPERSIBLE Take 1 tablet by mouth. Active fluticasone propionate (FLONASE) 50 MCG/ACT nasal sprayIndications: Acute non-recurrent frontal sinusitis 1 spray by Nasal route daily. 16 g 03/26/20 23 Active Alprostadil (PROSTAGLANDIN E1) PowderIndications :Erectile dysfunction 1 Dose by Does not apply route as needed. 0.025 g 01/11/20 24 Active atorvastatin (LIPITOR) 10 MG tabletIndications :Mixed hyperlipidemia TAKE 1 TABLET(10 MG) BY MOUTH EVERY OTHER DAY 45 tablet 1 03/16/20 25 Active ezetimibe (ZETIA) 10 MG tabletIndications :Mixed hyperlipidemia TAKE 1 TABLET BY MOUTH EVERY DAY 90 tablet 1 03/16/20 25 Active losartan (COZAAR) 50 MG tabletIndications :Essential hypertension TAKE 1 TABLET BY MOUTH EVERY DAY 90 tablet 1 03/16/20 25 Active Multiple Vitamin (MULTI-VITAMIN) tablet Take 1 tablet by mouth daily. Active MAGNESIUM OR 200 mg. Active ketoconazole (NIZORAL) 2 % shampoo APPLY TO SCALP AND LEAVE ON FOR 5 TO 10 MINUTES BEFORE RINSING. USE 1-3 TIMES WEEKLY NEEDED 07/23/20 24 Active Berberine-RedIsoA lphaAcd-D-K (OSTERA) Tab Take by mouth Active empagliflozin (JARDIANCE) 10 MG tabletIndications :Type 2 diabetes mellitus without complication, with long-term current use of insulin (CMS/HCC HHS/HCC) Take 1 tablet (10 mg total) by mouth daily. 90 tablet 3 05/12/20 25 Active empagliflozin (JARDIANCE) 10 MG tabletIndications :Type 2 diabetes mellitus without complication, with long-term current use of insulin (CMS/HCC HHS/HCC) Take 1 tablet (10 mg total) by mouth daily. 30 tablet 04/11/20 25 025 Discontinued empagliflozin (JARDIANCE) 10 MG tabletIndications :Type 2 diabetes mellitus without complication, with long-term current use of insulin (CMS/HCC HHS/HCC) TAKE 1 TABLET BY MOUTH EVERY DAY 90 tablet 05/11/20 25 025 Discontinued(Re order) Active Problems Problem Noted Date Diagnosed Date Multiple endocrine adenomas (CMS/HCC HHS/HCC) Erectile dysfunction 12/22/2022 History of Mendoza's esophagus 09/25/2021 Overview (10/01/2023): Added automatically from request for surgery [id number] History of colon polyps 09/25/2021 Overview (10/01/2023): Added automatically from request for surgery [id number] Spondylosis of lumbar spine 04/15/2021 Acute right-sided low back pain with right-sided sciatica 02/04/2021 BMI 33.0-33.9,adult 09/23/2019 Decreased hearing 09/15/2018 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 We will make no changes to his regimen. He will continue with lifestyle modifications. He is up-to-date on labs with his primary care physician. Vitamin B12 deficiency 12/29/2013 Hyperlipidemia 10/13/2013 Resolved Problems Problem Noted Date Diagnosed Date Resolved Date Prostate cancer screening 12/22/2022 Toe pain, right 07/12/2020 01/16/2021 Right facial numbness 01/05/20202019 Nephrolithiasis 03/16/2019 07/11/2020 Odynophagia 07/13/2018 07/11/2020 Overview (04/23/2019): Overview: Added automatically from request for surgery [id number] Encounters Date Type Department Care Team Description 05/25/2025 Scan [facility] INFO SRV[facility] Scanned, Doc Med Group CT (SCAN); Image (SCAN) 05/22/2025 Scan [facility] INFO SRVCS Scanned, Doc [facility] 05/11/2025 Telephone [facility] Family & Internal [address] [address] Nando Esquivel MD Medication 04/11/2025 4:00 PM CDT Office Visit [facility] Family Internal [address] [address] Nando Esquivel MD Follow Up; Hypertension; Sinusitis 04/11/2025 Travel 04/04/2025 8:30 AM CDT Laboratory Only [facility] Family & Internal [address] [address] Nando Esquivel MD 04/04/2025 Travel 03/29/2025 Orders Only [facility] Family Internal [address] [address] Nando Esquivel MD 03/24/2025 Scan [facility] HEALTH INFO SRVCS Scanned, Doc Med Group 03/16/2025 Telephone [facility] Family & Internal [address] [address] Nando Esquivel MD Lab Order from Last 3 Months Immunizations Immunization Administration Dates Next Due Fluarix (IIV4) 10/06/2020 Fluzone 6 Months+ Quad (0.5 mL Prefilled Syringe) 08/29/2021 Influenza (Generic) 09/07/2019, 8,09/10/2016,2014,09/08/2013,10/28/2012 Influenza Adult (Generic) 09/10/2022,,08/30/2018,2016,09/10/2016,11/08/2014 ERIC (JODI & JODI) COVID-19 AD26 VACCINE 0.5 ML IM SUSP 02/23/2021 MODERNA COVID-19 (PHILOSOPHY FACULTY ANTONIA ZANDRA), MRNA, LNP-S, PF, 50 MCG/ 0.25 ML DOSE 11/19/2021 Pneumococcal (Prevnar 20) 09/17/2023 Shingrix 05/07/2022,01/13/2022 Tdap (Adacel) 09/20/2021 Family History Medical History Relation Comments Cancer Father Early Father esophageal cancer Father Diabetes Mother Hypertension Mother Vision loss Mother Early Hearing Loss Paternal Grandfather Cancer Sister Early Sister esophageal cancer Sister Relation Status Comments Father Mother Alive Paternal Grandfather Sister Social History Tobacco Use Types Packs/Day Years Used Date Smoking Tobacco: Never Smokeless Tobacco: Never Tobacco Cessation:Counseling Given: No Alcohol Use Standard Drinks/Week Comments No 0 (1 standard drink = 0.6 oz pur e alcohol) AUDIT-C Answer Date Recorded Frequency of Alcohol Consumption Never 03/16/2019 Average Number of Drinks Not on file 019 Frequency of Binge Drinking Not on file 02/22 PHQ-2 Answer Date Recorded Patient Health Questionnaire-2 Score 0 03/17/2024 Education Answer Date Recorded What is the [...] file Not on file Not on file Last Filed Vital Signs Vital Sign Reading Time Taken Comments Blood Pressure 113/75 04/11/2025 3:52 PM CDT Pulse 87 04/11/2025 3:52 PM CDT Temperature 36.8 C (98.3 F) 04/11/2025 3:52 PM CDT Respiratory Rate 18 04/11/2025 3:52 PM CDT Oxygen Saturation 96% 04/11/2025 3:52 PM CDT Inhaled Oxygen Concentration - - Weight 111.6 kg (246 lb) 04/11/2025 3:52 PM CDT Height 180.3 cm (5' 11) 04/11/2025 3:52 PM CDT Body Mass Index 34.31 04/11/2025 3:52 PM CDT Plan of Treatment Upcoming Encounters Date Type Department Care Team (Late st Contact Info) Description 07/13/2025 4:00 PM CDT Office Visit [facility] Medical Group Family & Internal Medicine [address] [address] Nando Esquivel MD [address] [address] Health Maintenance Due Date Last Done Comments Diabetes: Retinopathy Eye Exam 1973 Hepatitis C 1973 Annual Medicare Wellness Visit 2022 COVID-19 Vaccine ( season) 2024 11/19/2021, 02/23/2021 PHQ-2 (Physician [place]) 11/23/2024 03/17/2024 Hemoglobin A1C 07/05/2025 04/04/2025, 092 01/2024, 03/23/2024, Additional history exists Kidney Health Evaluation 04/04/2026 04/04/2025 Lipid Panel 04/04/2026 04/04/2025, 05/0 11/2023, 02/20/2023, Additional history exists EGD-Mendoza's Surveillance 10/31/202710/31, 10/31/2021, 11/01/2018 DTaP, Tdap and Td Vaccines (2 - Td or Tdap) 09/20/2031 09/20/2021 RSV Immunization or 60+ Years (1 - 1-dose 75+ series) 2032 Colorectal Cancer Screening Colonoscopy (10 Years) 10/31/2034 10/31/2024, 10/31/2021, 11/01/2018 Zoster Vaccines Completed 05/07/2022, 01/13/2022 Pneumococcal Vaccine: 50+ Years Completed 09/17/2023 Meningococcal B Vaccine Aged Out No l onger eligible based on patient's age to complete this topic Meningococcal Vaccine Aged Out No po gio eligible based on patient's age to complete this topic RSV Immunizations Under 20 Months Aged Out No longer eligible based on patient's age to complete this topic Procedures Procedure Name Priority Date/Time Associated Diagnosis Comments CT GENERIC 05/25/2025 CT GENERIC 05/25/2025 IMAGE GENERIC 05/25/2025 COLLECTION VENOUS BLOOD VENIPUNCTURE Routine 04/04/2025 8:37 AM CDT Mixed hyperlipidemia Essential hypertension Type 2 diabetes mellitus without complication, with long-term current use of insulin ([facility] HHS/[facility]) Prostate cancer screening ALBUMIN URINE RANDOM W/CREATININE Routine 04/04/2025 8:30 AM CDT Type 2 diabetes mellitus without complication, with long-term current use of insulin ([facility] HHS/HCC) HEMOGLOBIN, GLYCOSYLATED Routine 04/04/2025 8:30 AM CDT Type 2 diabetes mellitus without complication, with long-term current use of insulin ([facility]) PROSTATE SPECIFIC ANTIGEN,SCREENING Routine 04/04/2025 8:30 AM CDT Encounter for prostate cancer screening LIPID PANEL Routine 04/04/2025 8:30 AM CDT Essential hypertension Mixed hyperlipidemia COMPREHENSIVE METABOLIC PANEL Routine 04/04/2025 8:30 AM CDT Essential hypertension Mixed hyperlipidemia Type 2 diabetes mellitus without complication, with long-term current use of insulin ([facility] HHS/[facility]) ENDOSCOPY (SCAN ORDER) 10/31/2024 COLONOSCOPY GENERIC (SCAN ORDER) 10/31/2024 from Last 3 Months or Most Recently Relevant to Health Maintenance Results * CT GENERIC (05/25/2025) Only the most recent of2 resultswithin the time period is included. Anatomical Region Laterality Modality Other 05/25/2025 us [facility] Scanned SCANNING Final Resu lt * IMAGE GENERIC (05/25/2025) Anatomical Region Laterality Modality Other 05/25/2025 us [facility] Scanned SCANNING Final Resu lt * (ABNORMAL) HEMOGLOBIN, GLYCOSYLATED (04/04/2025 8:30 AM CDT) HGB A1C 9.0(H) <5.7 % [facility] Comment: For someone without known diabetes, a hemoglobin A1c value of 6.5% or greater indicates that they may have diabetes and this should be confirmed with a follow-up test. For someone with known diabetes, a value <7% indicates that their diabetes is well controlled and a value greater than or equal to 7% indicates suboptimal control. A1c targets should be individualized based on duration of diabetes, age, comorbid conditions, and other considerations. Currently, no consensus exists regarding use of hemoglobin A1c for diagnosis of diabetes for children. 04/04/2025 8:30 AM CDT 04/05/2025 8:11 AM CDT Narrative Resulting Agency Comment Performing Organization Information: Site ID: BENJAMIN Name: [facility] Address: [address] [address] Director: Nishi Pike MD Nando Esquivel MD LABORATORY Final Resul t ILENE AJ [facility] [address] [address] [address], [place] * PROSTATE SPECIFIC ANTIGEN,SCREENING (04/04/2025 8:30 AM CDT) PSA TOTAL 0.09 < OR = 2.50 ng/mL [facility] Comment: The total PSA value from this assay system is standardized against the WHO standard. The test result will be approximately 20% lower when compared to the equimolar-standardized total PSA ([place]). Comparison of serial PSA results should be interpreted with this fact in mind. This test was performed using the Siemens chemiluminescent method. Values obtained from different assay methods cannot be used interchangeably. PSA levels, regardless of value, should not be interpreted as absolute evidence of the presence or absence of disease. 04/04/2025 8:30 AM CDT 04/05/2025 8:11 AM CDT Narrative Resulting Agency Comment Performing Organization Information: Site ID: BENJAMIN Name: [facility] Address: [facility] [place] [address] Director: Nishi Pike MD us Nando Esquivel MD LABORATORY Final Resul t [facility] Thomas [facility] [address] [place] [address] * ALBUMIN/CREATININE RATIO, RANDOM URINE (04/04/2025 8:30 AM CDT) CREATININE RANDOM (U) 164 20 - 320 mg/dL [facility] MICROALBUMIN (U) 0.4 See Note: mg/dL [facility] Comment: Reference Range: Reference Range Not established MICROALB/CREAT 2 <30 mg/g creat [facility] Comment: The ADA defines abnormalities in albumin excretion as follows: Albuminuria Category Result (mg/g creatinine) Normal to Mildly increased <30 Moderately increased 30-299 Severely increased > OR = 300 The ADA recommends that at least two of three specimens collected within a 3-6 month period be abnormal before considering a patient to be within a diagnostic category. URINE SPECIMEN / Unknown 04/04/2025 8:30 AM CDT 04/05/2025 8:11 AM CDT Narrative Resulting Agency Comment Performing Organization Information: Site ID: BENJAMIN Name: [facility] Address: [facility] [place] [address] Director: Nishi Pike MD us Nando Esquivel MD URINE ORDERABLES Final Resu lt [facility] [place] [address] [address] [address], [place] * (ABNORMAL) COMPREHENSIVE METABOLIC PANEL (04/04/2025 8:30 AM CDT) GLUCOSE 195(H) 65 - 99 mg/dL [facility] Comment: Fasting reference interval For someone without known diabetes, a glucose value >125 mg/dL indicates that they may have diabetes and this should be confirmed with a follow-up test. BUN 15 7 - 25 mg/dL [facility] CREATININE S/P/B 1.29 0.70 - 1.35 mg/dL [facility] GFR ESTIMATE 61 > OR = 60 mL/min/1. 73m2 [facility] BUN CREATININE RATIO SEE NOTE: 6 - (calc) [facility] Comment: Not Reported: BUN and Creatinine are within reference range. SODIUM S/P/B 139 135 - 146 mmol/L [facility] POTASSIUM S/P/B 5.0 3.5 - 5.3 mmol/L [facility] CHLORIDE S/P/B 104 98 - 110 mmol/L [facility] CO2 27 20 - 32 mmol/L [facility] CALCIUM S/P/B 9.7 8.6 - 10.3 mg/dL [facility] TOTAL PROTEIN S/P/B 6.8 6.1 - 8.1 g/dL [facility] ALBUMIN S/P/B 4.4 3.6 - 5.1 g/dL [facility] GLOBULIN 2.4 1.9 - 3.7 g/dL (calc) [facility] ALBUMIN/GLOBULI N RATIO 1.8 1.0 - 2.5 (calc) [facility] BILIRUBIN TOTAL S/P/B 1.1 0.2 - 1.2 mg/dL [facility] ALKALINE PHOSPHATASE S/P/B 106 35 - 144 U/L [facility] AST 25 10 - 35 U/L [facility] ALT 34 9 - 46 U/L [facility] 04/04/2025 8:30 AM CDT 04/05/2025 8:11 AM CDT Narrative Resulting Agency Comment Performing Organization Information: Site ID: BENJAMIN Name: Ilene Niel[facility] Address: [address] [address] Director: Nishi Pike MD Nando Esquivel MD LABORATORY Final Resul t ILENE AJ [facility] [place] [address] [address], * (ABNORMAL) LIPID PANEL (04/04/2025 8:30 AM CDT) CHOLESTEROL 181 <200 mg/dL [facility] HDL 47 > OR = 40 mg/dL [facility] TRIGLYCERIDES 121 <150 mg/dL [facility] LDL (CALCULATED) 111(H) mg/dL (calc) [facility] Comment: Reference range: <100 Desirable range <100 mg/dL for primary prevention; <70 mg/dL for patients with CHD or diabetic patients with > or = 2 CHD risk factors. LDL-C is now calculated using the Jose Alberto-Anurag calculation, which is a validated novel method providing better accuracy than the Friedewald equation in the estimation of LDL-C. Jose Alberto SS et al. MISTI. 2013;310(19): 3790-4087 (http://education.SHOP.CA.Intiza/faq/PIQ174) CHOL/HDL RATIO 3.9 <5.0 (calc) [facility] NON HDL CHOLESTEROL 134(H) <130 mg/dL (calc) [facility] Comment: For patients with diabetes plus 1 major ASCVD risk factor, treating to a non-HDL-C goal of <100 mg/dL (LDL-C of <70 mg/dL) is considered a therapeutic option. 04/04/2025 8:30 AM CDT 04/05/2025 8:11 AM CDT Narrative Resulting Agency Comment Performing Organization Information: Site ID: BENJAMIN Name: Ilene Nielson Address: [place] [address] Director: Nishi Pike MD Nando Esquivel MD LABORATORY Final Resul t [facility] [place] [address] [address] [address], [place] * ENDOSCOPY (SCAN ORDER) (10/31/2024) 10/31/2024 [facility] Scanned SCANNING Final Resu lt * COLONOSCOPY GENERIC (SCAN ORDER) (10/31/2024) 10/31/2024 [facility] Scanned SCANNING Final Resu lt from Last 3 Months or Most Recently Relevant to Health Maintenance Insurance [employer] Care Teams Sonar Technician Relationship Specialty [place] [address] [place] [address] PCP - General FAMILY PRACTICE 06/08/23
--- OUTSIDE RECORDS SUMMARY | 2025-06-01 11:29 | XMS_ITS | Encounter Summary ---
Author Organization [facility] Address [facility] [place] [address] Care Team Providers Care Compounding Technician Name Role Phone Nando Esquivel MD Primary Care Provider [phone] Reason for Visit * Reason Comments CT (SCAN) Image (SCAN) Encounter Details Date Type Department Care Team ([facility] Contact Info) Description 05/25/2025 Scan HEALTH INFO SRVCS Scanned, Doc Med Group CT (SCAN); Image (SCAN) Social History Tobacco Use Types Packs/Day Years [...] Encounters Date Type Department Care Team (Late Contact Info) Description 07/13/2025 4:00 PM CDT Office Visit [facility] Medical Group Family & Internal Medicine [facility] [address] [place] [address] Nando Esquivel MD [address] [address] documented as of this encounter Procedures Procedure Name Priority Date/Time Associated Diagnosis Comments CT GENERIC 05/25/2025 CT GENERIC 05/25/2025 IMAGE GENERIC 05/25/2025 documented in this encounter Results * IMAGE GENERIC (05/25/2025) Anatomical Region Laterality Modality Other 05/25/2025 us [facility] Scanned SCANNING Final Resu lt * CT GENERIC (05/25/2025) Anatomical Region Laterality Modality Other 05/25/2025 us [facility] Scanned SCANNING Final Resu lt * CT GENERIC (05/25/2025) Anatomical Region Laterality Modality Other 05/25/2025 us [facility] [facility] Scanned SCANNING Final Resu lt documented in this encounter Visit Diagnoses Not on filedocumented in this encounter Additional Health Concerns Assessment Noted Time PHQ-9 Depression Total Score: 0 11/27/19 22 10:59 AM MEDICAL/SURGERY REGISTERED NURSE documented as of this encounter Care Teams Compounding Technician Relationship Specialty [place] [address] [place], [place] [id number] PCP - General FAMILY PRACTICE 06/08/23 documented as of this encounter
[2025-06-01 12:16] LABS: INR 0.9; Partial Thromboplastin Time 28.3 Seconds (22.3-36.8); Prothrombin Time 12.6 Seconds (11.1-14.7)
[2025-06-01 12:19] LABS: Anion Gap 8 mmol/L (4-12); Blood Urea Nitrogen 15 mg/dL (9-20); Calcium 9.7 mg/dL (8.4-10.2); Carbon Dioxide 26 mmol/L (22-30); Chloride 103 mmol/L (98-107); Estimated Glomerular Filt Rate > 60; Glucose 189 mg/dL (65-110); Potassium 4.3 mmol/L (3.4-5.0); Sodium 137 mmol/L (137-145)
== END 2025-06-01 11:20 | disposition home or self-care (01) ==
LOC: ANHSURGERY 11:24
PROVIDERS: Anesthesiology; PCP Family Medicine Sports Medicine; Visit Provider Urology
DX: N20.0 Calculus of kidney (principal); E11.9 Type 2 diabetes mellitus without complications; Z01.818 Encounter for other preprocedural examination
CPT/HCPCS: 36415; 80048; 85610; 85730

== ENCOUNTER 2025-06-02 01:18 | Day surgery (SDC) | payer OTHER, SELFPAY ==
[2025-06-01 08:39] VITALS: BMI 32.3
--- NOTE | 2025-06-01 09:08 | PC.NURSE ---
Report to the Outpatient Waiting Room, entrance under the green pavilion located off [facility], at time ___6:30AM____ on date ___06/02/25____. Planned Procedure Time: ___8:30AM .? Time changes happen often and if your time is changed the preop area will call you the afternoon before. - You and your visitor will be asked to self-screen and do not enter if you have any COVID symptoms. Please call surgeon if you need to reschedule. - A mask is optional within the hospital at this time. Patients may have clear liquids (water, carbonated beverages, clear teas, apple juice) until 3 hours prior to surgery (5:30AM) with a maximum of 20 ounces. - No food from midnight until time of surgery and no smoking, or chewing tobacco (or any form of nicotine). No chewing gum, candy or mints. Take only the following medications with a SIP of water on the morning of surgery: NONE DO NOT STOP ANY OF YOUR OTHER PRESCRIPTION MEDICATIONS PRIOR TO SURGERY EXCEPT THE FOLLOWING Hold all vitamins and supplements for 3 days per anesthesiologist.- START HOLDING NOW(06/01/25) Medications to discontinue per physician __HOLD ASPIRIN 7 DAYS PRE-OP PER DR FRANK--PATIENT HAS ALREADY BEEN HOLDING X2 WEEKS Date to take last dose 05/25/25 Please no make-up, nail comoran, hairspray, perfume, deodorant, or body powder the day of surgery.? No jewelry (including any body piercings) or valuables the day of surgery, leave them at home.? Please take a shower or bath the night before, or the morning of, surgery with an antibacterial soap.? Wear comfortable, loose fitting clothing. - Jewelry must be removed prior to entering the operating room.? Rings and piercings that are not removed may be cut off. - The hospital will not accept responsibility for valuables.? - Please leave all valuables, including medications, at home the day of surgery. If you are going home after surgery, a licensed stock driver must drive you home.? - NO public transportation without another adult if you receive anesthesia. - We recommend that an adult stay with you for 24 hours following discharge. - We also recommend that you do not drive, make important decision, drink alcoholic beverages, or take any drugs that were not prescribed by your health care provider for at least 24 hours after your discharge time. Follow any additional instructions given to you from your surgeon. Telephone instructions given to ____PATIENT and asked if any additional questions and then verbalized understanding. Patient advised to call surgeon office or pre surgery nurse liaison [phone] if any additional questions.
[2025-06-02] VITALS (7 sets, daily range): BP systolic 103–129; BP diastolic 69–84; PULSE 54–85; RESP 12–20; TEMP 36.6–36.9; O2SAT 97–100; BMI 33.2
--- NOTE | ~2025-06-02 | XR_ITS ---
Exam: Abdomen 1V HISTORY: PRE LITHO LEFT SIDE STONE COMPARISON: 05/25/2025. Reference is also made to a CT examination of the abdomen and pelvis performed the same day. TECHNIQUE: Supine images of the abdomen FINDINGS: Bowel gas pattern is non-obstructive. There is no free air or deep sulci. Multiple calcifications are identified projecting over the bilateral kidneys. Although multiple stones are identified within the left kidney on CT examination, only 4 prominent ca lcifications are demonstrated on plain film evaluation. Within the upper pole: measuring 3.9 and 5.2 mm Within the interpolar region: measuring 3.3 mm. Within the lower pole: measuring 4.1 mm. Projecting over the right kidney is a 3.1 mm calcification. No stones project over the bilateral ureters Postoperative change within the pelvis. IMPRESSION: Bilateral renal calculi, as detailed above Reviewed, dictated and finalized at location A.
--- OUTSIDE RECORDS SUMMARY | 2025-06-02 01:20 | XMS_ITS | Encounter Summary ---
Author Organization [facility] Address [facility] [place] [address] Care Team Providers Care Circuit Rider Name Role Phone Iglesia Moreno MD Primary Care Provider U Vaishali Desouza NP Primary Care Provider [phone] Elvira Cantu MD Primary Care Provider [phone] Nando Esquivel MD Primary Care Provider [phone] Encounter Details Date Type Department Care Team (Late st Contact Info) Description 11/14/2021 Clicktree Message Enc [facility] Medical Group Family & Internal Medicine [address] [address] Matt, [facility] Provider Cpap Social History Tobacco Use Types [...] Description 07/13/2025 4:00 PM CDT Office Visit [facility] Medical Group Family & Internal Medicine [facility] [address] [place] [address] Nando Esquivel MD [address] [facility] [address] [place] [address] documented as of this encounter Visit Diagnoses Not on filedocumented in this encounter Additional Health Concerns Infection Onset Date Last Indicated Resolved Time COVID-19 Rule Out 11/27/2021 11/27/2021 11/27/2021 11:49 AM ELECTION SUPERVISOR COVID-19 Rule Out 08/19/2023 07/28/2023 08/19/2023 10:44 AM CDT COVID-19 Rule Out 10/01/2023 10/01/2023 10/01/2023 11:52 AM ELECTION SUPERVISOR COVID-19 Rule Out 11/05/2023 11/05/2023 11/05/2023 12:36 PM ELECTION SUPERVISOR COVID-19 Rule Out 11/05/2023 11/05/2023 11/05/2023 12:40 PM ELECTION SUPERVISOR COVID-19 Rule Out 11/05/2023 11/05/2023 11/05/2023 2:15 PM ELECTION SUPERVISOR documented as of this encounter Care Teams Circuit Rider Relationship Specialty Start Date End Date Iglesia Moreno MD PCP - General INTERNAL MEDICINE 03/10/19 02/26/23 [place] [address] [facility] [address] [place] [address] PCP - General Nurse Practitioner Family 02/27/2304/14 [place] [address] [place] [address] PCP - General FAMILY PRACTICE 05/18/23 06/07/23 [place] [address] [place] [address] PCP - General FAMILY PRACTICE 06/08/23 documented as of this encounter
--- OUTSIDE RECORDS SUMMARY | 2025-06-02 01:20 | XMS_ITS | Encounter Summary ---
Author Organization [facility] Address [facility] [place] [address] Care Team Providers Care Aircraft Electrician Name Role Phone Iglesia Moreno MD Primary Care Provider U Vaishali Desouza NP Primary Care Provider [phone] Elvira Cantu MD Primary Care Provider [phone] Nando Esquivel MD Primary Care Provider [phone] Encounter Details Date Type Department Care Team (Late st Contact Info) Description 12/04/2022 Comfort Line Message Enc [facility] Medical Group Family & Internal Medicine [address] [address] Matt, [facility] Provider Due for routine follow [...] Description 07/13/2025 4:00 PM CDT Office Visit [facility] Medical Group Family & Internal Medicine [facility] [address] [place] [address] Nando Esquivel MD [address] [facility] [address] [place] [address] documented as of this encounter Visit Diagnoses Not on filedocumented in this encounter Additional Health Concerns Infection Onset Date Last Indicated Resolved Time COVID-19 Rule Out 08/19/2023 07/28/2023 08/19/2023 10:44 AM CDT COVID-19 Rule Out 10/01/2023 10/01/2023 10/01/2023 11:52 AM BOTTOM TURNING LATHE TENDER COVID-19 Rule Out 11/05/2023 11/05/2023 11/05/2023 12:36 PM BOTTOM TURNING LATHE TENDER COVID-19 Rule Out 11/05/2023 11/05/2023 11/05/2023 12:40 PM BOTTOM TURNING LATHE TENDER COVID-19 Rule Out 11/05/2023 11/05/2023 11/05/2023 2:15 PM BOTTOM TURNING LATHE TENDER Assessment Noted Time PHQ-9 Depression Total Score: 0 11/27/19 10:59 AM BOTTOM TURNING LATHE TENDER documented as of this encounter Care Teams Aircraft Electrician Relationship Specialty Start Date End Date Iglesia Moreno MD PCP - General INTERNAL MEDICINE 03/10/19 02/26/23 [place] [address] [facility] [address] [place] [address] PCP - General Nurse Practitioner Family 02/27/2304/24 [place] [address] [address] [place] [address] PCP - General FAMILY PRACTICE 05/18/23 06/07/23 [place] [address] [place] [address] PCP - General FAMILY PRACTICE 06/08/23 documented as of this encounter
--- OUTSIDE RECORDS SUMMARY | 2025-06-02 01:20 | XMS_ITS | Clinical Summary ---
Author Organization [facility] Address [address] [place] [address] Care Team Providers Care Cooperative Extension Agent Name Role Phone Nando Esquivel MD Primary Care Provider + Allergies Active Allergy Reactions Criticality Noted Date Comments Penicillins Unknown Low 06/25/2007 Remote allergy Pydgdcm-Mdn-Cjd Reductase Inhibitors Other (See comments) Low 01/16/2016 [...] mg tablet 10/15/20 21 Active vit D3-vit M-shgxetjfb-br ps [phone] fmfk-rrl-lr-mg tablet Take by mouth Active magnesium gluconate 200 mg tabletIndicati ons:hypomagnes emia 1 tablet (200 mg total) Active Active Problems Problem Noted Date Diagnosed Date 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 History of colon polyps 09/25/2021 Overview (09/25/2021): Added automatically from request for surgery [id number] History of Mendoza's esophagus 09/25/2021 Overview (09/25/2021): Added automatically from request for surgery [id number] Spondylosis of lumbar spine 04/15/2021 Encounter for screening colo noscopy for cof-jczl-umkh patient 08/24/2018 Overview (08/24/2018): Added automatically from request for surgery [id number] Odynophagia 07/13/2018 Overview (07/13/2018): Added automatically from request for surgery [id number] Hypertension 07/11/2018 Assessment & Plan (07/13/2019 2:33 [...] 09/08/2019,2018,09/01/2018,08/30,08/31/2017,11/08/2014 Surgical History Surgery Date Site/Laterality Comments MI UNLISTED PROCEDURE ABDOMEN PERITONEUM & OMENTUM Hernia Repair - (Added by TW Conv) MI PROSTECT RETROPUB RAD W/WO NRV SPAR & [...] on file Legal Sex Male 8:52 PM DECK LID FITTER Gender Identity Not on file Sexual Orientation Not on file Obstetrics History Last Filed Vital Signs Vital Sign Reading Time Taken Comments Blood Pressure 109/66 10/31/2024 3:10 PM DECK LID FITTER Pulse 71 10/31/2024 3:10 PM DECK LID FITTER Temperature 36.9 C (98.4 F) 10/31/2024 11:53 AM DECK LID FITTER Respiratory Rate 16 10/31/2024 3:10 PM DECK LID FITTER Oxygen Saturation 100% 10/31/2024 3:10 PM DECK LID FITTER Inhaled Oxygen Concentration - - Weight 109.8 kg (242 lb) 10/31/2024 11:53 AM DECK LID FITTER Height 182.9 cm (6') 10/31/2024 11:53 AM DECK LID FITTER Body Mass Index 32.82 10/31/2024 11:53 AM DECK LID FITTER Plan of Treatment Health Maintenance Due Date [...] Associated Diagnosis Comments COLONOSCOPY 10/31/2024 2:11 PM DECK LID FITTER PSA DIAGNOSTIC Routine Gen Lab 04/22/2017 11:44 AM CDT from Last 3 Months or Most Recently Relevant to Health Maintenance Results * Colonoscopy (10/31/2024 2:11 PM DECK LID FITTER) Anatomical Region Laterality Modality Other Narrative Procedure Note Soco Boo MD - 10/31/2024 2:11 PM CST ENDOSCOPY LAB Patient Name: Kirill Duran Procedure Date: 10/31/2024 2:11 PM Admit Type: Outpatient Room: [facility] Date of : 1955 Instrument Name: [id number] [...] following this procedure please call my officeat [phone] to speak to my nurse, Raeann Milligan.After hours and evenings please call [phone] andspeak to the GI fellow service station cashier. Please tell them that Dr. Boo did your procedure and that you wereinstructed to have the fellow call me or the physiciancovering for me to discuss the management of your condition.If you have an urgent problem, [facility] and have the ER [...] ORDERABLES Final Res ult VAIBHAV EDMONDS One [facility] Department [place] [address] from Last 3 Months or Most Recently Relevant to Health Maintenance Insurance [employer] PLUS [facility] ADVANTAGE CHOICE PPO [facility] ADVANTAGE CHOICE PPO Advance Directives For more information, please contact: [phone] * Full Code (Latest Code Status on File) Date Activated Date Inactivated Comments 10/31/2024 11:39 AM 10/31/2024 7:29 PM * Full Code Date Activated Date Inactivated Comments 10/31/2021 9:21 AM 10/31/2021 5:47 PM * Full Code Date Activated Date Inactivated Comments 11/01/2018 7:16 AM 11/01/2018 11:13 AM * Full Code Date Activated Date Inactivated Comments 07/13/2018 12:29 PM 07/14/2018 10:54 AM Care Teams Cooperative Extension Agent Relationship Specialty [place] [address] [place] [address] PCP - General Family Medicine 10/19/23
--- OUTSIDE RECORDS SUMMARY | 2025-06-02 01:20 | XMS_ITS | Encounter Summary ---
Author Organization [facility] Address Critical access hospital[address] [place] [address] Care Team Providers Care Health Educator Name Role Phone Vaishali Lundy NP Primary Care Provider [phone] Elvira Cantu MD Primary Care Provider [phone] Nando Esquivel MD Primary Care Provider [phone] Encounter Details Date Type Department Care Team (Late st Contact Info) Description 02/27/2023 [facility] hospital Medical Group Family & Internal Medicine [address] [address] [facility] Provider results Social History Tobacco Use Types [...] Description 07/13/2025 4:00 PM CDT Office Visit [facility] Medical Group Family & Internal Medicine [facility] [address] [place] [address] Nando Esquivel MD [address] [place] [address] documented as of this encounter Visit Diagnoses Not on filedocumented in this encounter Additional Health Concerns Infection Onset Date Last Indicated Resolved Time COVID-19 Rule Out 08/19/2023 07/28/2023 08/19/2023 10:44 AM CDT COVID-19 Rule Out 10/01/2023 10/01/2023 10/01/2023 11:52 AM VENTURE CAPITALIST COVID-19 Rule Out 11/05/2023 11/05/2023 11/05/2023 12:36 PM VENTURE CAPITALIST COVID-19 Rule Out 11/05/2023 11/05/2023 11/05/2023 12:40 PM VENTURE CAPITALIST COVID-19 Rule Out 11/05/2023 11/05/2023 11/05/2023 2:15 PM VENTURE CAPITALIST Assessment Noted Time PHQ-9 Depression Total Score: 0 11/27/19 10:59 AM VENTURE CAPITALIST documented as of this encounter Care Teams Health Educator Relationship Specialty Start [place] [address] [facility] [address] [place] [address] PCP - General Nurse Practitioner Family 02/27/23 604/14 [place] [address] [facility] [place] [address] PCP - General FAMILY PRACTICE 05/18/23 06/07/23 [place] [address] [place] [address] PCP - General FAMILY PRACTICE 06/08/23 documented as of this encounter
--- OUTSIDE RECORDS SUMMARY | 2025-06-02 01:20 | XMS_ITS | Encounter Summary ---
Author Organization [facility] Address [facility] [place] [address] Care Team Providers Care Administration Physician Name Role Phone Nando Esquivel MD Primary Care Provider [phone] Reason for Visit * Reason Comments CT (SCAN) Image (SCAN) Encounter Details Date Type Department Care Team ([facility] Contact Info) Description 05/25/2025 Scan HEALTH INFO [...] Description 07/13/2025 4:00 PM CDT Office Visit [facility] Medical Group Family & Internal Medicine [facility] [address] [place] [address] Nando Esquievl MD [address] [address] documented as of this encounter Procedures Procedure [...] Anatomical Region Laterality Modality Other 05/25/2025 us [employer] [facility] Scanned SCANNING Final Resu lt documented in this encounter Visit Diagnoses Not on filedocumented in this encounter Additional Health Concerns Assessment Noted Time PHQ-9 Depression Total Score: 0 11/27/19 22 10:59 AM LIGHT TRUCK DRIVER documented as of this encounter Care Teams Administration Physician Relationship Specialty Start [place] [address] [place], [place] [id number] PCP - General FAMILY PRACTICE 06/08/23 documented as of this encounter
--- OUTSIDE RECORDS SUMMARY | 2025-06-02 01:20 | XMS_ITS | Referral Summary ---
Author Organization [facility] Address [address] [place] [address] Care Team Providers Care Substation Design Draftsperson Name Role Phone Nando Esquivel MD Primary Care Provider + Allergies Active Allergy Reactions Criticality Noted Date Comments Penicillins Unknown Low 06/25/2007 Remote allergy Bpdmrvs-Crj-Cvk Reductase Inhibitors Other (See comments) Low 01/16/2016 [...] mg tablet 10/15/20 21 Active vit D3-vit N-ubtvagyja-nf ps [phone] tlgc-vjo-aa-mg tablet Take by mouth Active magnesium gluconate 200 mg tabletIndicati ons:hypomagnes emia 1 tablet (200 mg total) Active Active Problems Problem Noted Date Diagnosed Date 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 History of colon polyps 09/25/2021 Overview (09/25/2021): Added automatically from request for surgery [id number] History of Mendoza's esophagus 09/25/2021 Overview (09/25/2021): Added automatically from request for surgery [id number] Spondylosis of lumbar spine 04/15/2021 Encounter for screening colo noscopy for aln-bnel-osyl patient 08/24/2018 Overview (08/24/2018): Added automatically from request for surgery [id number] Odynophagia 07/13/2018 Overview (07/13/2018): Added automatically from request for surgery [id number] Hypertension 07/11/2018 Assessment & Plan (07/13/2019 2:33 [...] on file Legal Sex Male 8:52 PM LEGUILLON DEBEADER Gender Identity Not on file Sexual Orientation Not on file Last Filed Vital Signs Vital Sign Reading Time Taken Comments Blood Pressure 109/66 10/31/2024 3:10 PM LEGUILLON DEBEADER Pulse 71 10/31/2024 3:10 PM LEGUILLON DEBEADER Temperature 36.9 C (98.4 F) 10/31/2024 11:53 AM LEGUILLON DEBEADER Respiratory Rate 16 10/31/2024 3:10 PM LEGUILLON DEBEADER Oxygen Saturation 100% 10/31/2024 3:10 PM LEGUILLON DEBEADER Inhaled Oxygen Concentration - - Weight 109.8 kg (242 lb) 10/31/2024 11:53 AM LEGUILLON DEBEADER Height 182.9 cm (6') 10/31/2024 11:53 AM LEGUILLON DEBEADER Body Mass Index 32.82 10/31/2024 11:53 AM LEGUILLON DEBEADER Plan of Treatment Not on file Procedures Procedure Name Priority Date/Time Associated Diagnosis Comments COLONOSCOPY 10/31/2024 2:11 PM LEGUILLON DEBEADER PSA DIAGNOSTIC Routine Gen Lab 04/22/2017 11:44 AM CDT from Last 3 Months or Most Recently Relevant to Health Maintenance Results * Colonoscopy (10/31/2024 2:11 PM LEGUILLON DEBEADER) Anatomical Region Laterality Modality Other Narrative Procedure Note Soco Boo MD - 10/31/2024 2:11 PM CST ENDOSCOPY LAB Patient Name: Kirill Duran Procedure Date: 10/31/2024 2:11 PM Admit Type: Outpatient Room: [facility] Date of : 1955 Instrument [...] following this procedure please call my officeat [phone] to speak to my nurse, Raeann Milligan.After hours and evenings please call [phone] andspeak to the GI fellow manager inventory control. Please tell them that Dr. Boo did your procedure and that you wereinstructed to have the fellow call me or the physiciancovering for me to discuss the management of your condition.If you have an urgent problem, [facility] and have the ER [...] PSA-Total <0.1(L) 0.1 - 4.0 ng/mL [facility] Blood specimen (specimen) 04/22/2017 11:44 AM CDT 04/22/2017 12:38 PM CDT us Notinfile Unknown LAB BLOOD ORDERABLES Final Res ult [facility] One [facility] Department [place] [address] from Last 3 Months or Most Recently Relevant to Health Maintenance Insurance [facility] CHOICE PLUS [facility] HMO/PPO Address: [facility] [id number] [place] [address] [facility] ADVANTAGE CHOICE PPO [facility] ADVANTAGE CHOICE PPO Advance Directives For more information, please contact: [phone] * Full Code (Latest Code Status on File) Date Activated Date Inactivated Comments 10/31/2024 11:39 AM 10/31/2024 7:29 PM * Full Code Date Activated Date Inactivated Comments 10/31/2021 9:21 AM 10/31/2021 5:47 PM * Full Code Date Activated Date Inactivated Comments 11/01/2018 7:16 AM 11/01/2018 11:13 AM * Full Code Date Activated Date Inactivated Comments 07/13/2018 12:29 PM 07/14/2018 10:54 AM Care Teams Substation Design Draftsperson Relationship Specialty [place] [address] [place] [address] PCP - General Family Medicine 10/19/23
--- OUTSIDE RECORDS SUMMARY | 2025-06-02 01:20 | XMS_ITS | Clinical Summary ---
Author Organization [facility] Address [address] [place] [address] Care Team Providers Care Medical Information Specialist Name Role Phone Nando Esquivel MD Primary [...] (10/01/2023): Added automatically from request for surgery [id number] History of colon polyps 09/25/2021 Overview (10/01/2023): Added automatically from request for surgery [id number] Spondylosis of lumbar spine 04/15/2021 Acute right-sided [...] Overview: Added automatically from request for surgery [id number] Encounters Date Type Department Care Team Description 05/25/2025 Scan [facility] Scanned, Doc Med Group CT (SCAN); Image (SCAN) 05/22/2025 Scan [facility] Scanned, Doc [facility] 05/11/2025 Telephone [facility] Family & Internal [address] [address] Nando Esquivel MD Medication 04/11/2025 4:00 PM CDT Office Visit [facility] Family Internal [address] [address] Nando Esquivel MD Follow Up; Hypertension; Sinusitis 04/11/2025 Travel 04/04/2025 8:30 AM CDT Laboratory Only [facility] Internal [address] [address] Nando Esquivel MD 04/04/2025 Travel 03/29/2025 Orders Only [facility] Family Internal [address] [address] Nando Esquivel MD 03/24/2025 Scan [facility] Scanned, Doc [facility] Group 03/16/2025 Telephone [facility] Internal [address] [address] Nando Esquivel MD Lab Order from Last 3 Months Immunizations Immunization Administration Dates Next Due Fluarix (IIV4) 10/06/2020 Fluzone 6 Months+ Quad (0.5 mL Prefilled Syringe) 08/29/2021 Influenza (Generic) 09/07/2019, 8,09/10/2016,2014,09/08/2013,10/28/2012 Influenza Adult (Generic) 09/10/2022,,08/30/2018,2016,09/10/2016,11/08/2014 ERIC (JODI & JODI) COVID-19 AD26 VACCINE 0.5 ML IM SUSP 02/23/2021 MODERNA COVID-19 (NIGHT BAKER ANTONIA ZANDRA), MRNA, LNP-S, PF, 50 MCG/ [...] Description 07/13/2025 4:00 PM CDT Office Visit [facility] Medical Group Family & Internal Medicine [address] [address] Nando Esquivel MD [address] [address] Health Maintenance Due Date Last Done Comments Diabetes: Retinopathy Eye Exam 1975 Hepatitis C 1973 Annual Medicare Wellness Visit 2022 COVID-19 Vaccine ( season) 2024 11/19/2021, 02/23/2021 PHQ-2 (Physician [place]) 11/23/2024 03/17/2024 Hemoglobin A1C 07/05/2025 04/04/2025, 092 [...] complication, with long-term current use of insulin ([facility]) Prostate cancer screening ALBUMIN URINE RANDOM W/CREATININE Routine 04/04/2025 8:30 AM CDT Type 2 diabetes mellitus without complication, with long-term current use of insulin ([facility]/HCC) HEMOGLOBIN, GLYCOSYLATED Routine 04/04/2025 8:30 AM CDT Type 2 diabetes mellitus without complication, with long-term current use of insulin ([facility]) PROSTATE SPECIFIC ANTIGEN,SCREENING Routine 04/04/2025 8:30 AM CDT Encounter for prostate cancer screening LIPID PANEL Routine 04/04/2025 8:30 AM CDT Essential hypertension Mixed hyperlipidemia COMPREHENSIVE METABOLIC PANEL Routine 04/04/2025 8:30 AM CDT Essential hypertension Mixed hyperlipidemia Type 2 diabetes mellitus without complication, with long-term current use of insulin ([facility]) ENDOSCOPY (SCAN ORDER) 10/31/2024 COLONOSCOPY GENERIC (SCAN ORDER) 10/31/2024 from Last 3 Months or Most Recently Relevant to Health Maintenance Results * CT GENERIC (05/25/2025) Only the most recent of2 resultswithin the time period is included. Anatomical Region Laterality Modality Other 05/25/2025 us [facility] Scanned SCANNING Final Resu lt * IMAGE GENERIC (05/25/2025) Anatomical Region Laterality Modality Other 05/25/2025 us [facility] Scanned SCANNING Final Resu lt * (ABNORMAL) HEMOGLOBIN, GLYCOSYLATED (04/04/2025 8:30 AM CDT) HGB A1C 9.0(H) <5.7 % [facility] Comment: For someone without known diabetes, a [...] Performing Organization Information: Site ID: B[place] Name: Danal d/b/a [employer] Address: [address] [address] Director: Nishi Pike MD Nando Esquivel MD LABORATORY Final Resul t ILENE AJ [employer] [address] [address] [address], [place] * PROSTATE SPECIFIC ANTIGEN,SCREENING (04/04/2025 8:30 AM CDT) PSA TOTAL 0.09 < OR = 2.50 ng/mL [facility] Comment: The total PSA value from this assay system is standardized against the WHO standard. The test result will be approximately 20% lower when compared to the equimolar-standardized total PSA (Flor [place]). Comparison of serial PSA results should be [...] Performing Organization Information: Site ID: B[place] Name: [employer] Address: [facility] [place] [address] Director: Nishi Pike MD us Nando Esquivel MD LABORATORY Final Resul t [facility] Thomas AJ [employer] [facility] [address] [place] [place] [address] * ALBUMIN/CREATININE RATIO, RANDOM URINE (04/04/2025 8:30 AM CDT) CREATININE RANDOM (U) 164 20 - 320 mg/dL [facility] MICROALBUMIN (U) 0.4 See Note: mg/dL [employer] Comment: Reference Range: Reference Range Not established MICROALB/CREAT 2 <30 mg/g creat [employer] Comment: The ADA defines abnormalities in [...] Performing Organization Information: Site ID: B[place] Name: [employer] Address: [facility] [place] [address] Director: Nishi Pike MD us Nando Esquivel MD URINE ORDERABLES Final Resu lt [facility] [place] [address] [address] [address], [place] * (ABNORMAL) COMPREHENSIVE METABOLIC PANEL (04/04/2025 8:30 AM CDT) GLUCOSE 195(H) 65 - 99 mg/dL [facility] Comment: Fasting reference interval For someone without known diabetes, a glucose value >125 mg/dL indicates that they may have diabetes and this should be confirmed with a follow-up test. BUN 15 7 - 25 mg/dL [facility] CREATININE S/P/B 1.29 0.70 - 1.35 mg/dL [facility] GFR ESTIMATE 61 > OR = 60 mL/min/1. 73m2 [facility] BUN CREATININE RATIO SEE NOTE: 6 - (calc) [facility] Comment: Not Reported: BUN and Creatinine are within reference range. SODIUM S/P/B 139 135 - 146 mmol/L [facility] POTASSIUM S/P/B 5.0 3.5 - 5.3 mmol/L [facility] CHLORIDE S/P/B 104 98 - 110 mmol/L [facility] CO2 27 20 - 32 mmol/L [facility] CALCIUM S/P/B 9.7 8.6 - 10.3 mg/dL [facility] TOTAL PROTEIN S/P/B 6.8 6.1 - 8.1 g/dL [facility] ALBUMIN S/P/B 4.4 3.6 - 5.1 g/dL [facility] GLOBULIN 2.4 1.9 - 3.7 g/dL (calc) [facility] ALBUMIN/GLOBULI N RATIO 1.8 1.0 - 2.5 (calc) [facility] BILIRUBIN TOTAL S/P/B 1.1 0.2 - 1.2 mg/dL [facility] ALKALINE PHOSPHATASE S/P/B 106 35 - 144 U/L [facility] AST 25 10 - 35 U/L [facility] ALT 34 9 - 46 U/L [facility] 04/04/2025 8:30 AM CDT 04/05/2025 8:11 AM CDT Narrative Resulting Agency Comment Performing Organization Information: Site ID: [place] Name: Ilene Nielson Address: [place] [address] Director: Nishi Pike MD Nando Esquivel MD LABORATORY Final Resul t ILENE AJ [facility] [place] [place] [address] [address], * (ABNORMAL) LIPID PANEL (04/04/2025 8:30 AM CDT) CHOLESTEROL 181 <200 mg/dL [facility] HDL 47 > OR = 40 mg/dL [facility] TRIGLYCERIDES 121 <150 mg/dL [facility] LDL (CALCULATED) 111(H) mg/dL (calc) [facility] Comment: Reference range: <100 Desirable range <100 mg/dL for primary prevention; <70 mg/dL for patients with CHD or diabetic patients with > or = 2 CHD risk factors. LDL-C is now calculated using the Jose Alberto-Anurag calculation, which is a validated novel method providing better accuracy than the Friedewald equation in the estimation of LDL-C. Jose Alberto SS et al. MISTI. 2013;310(19): 7473-1493 (http://education.Lovli.YumZing/faq/KMB684) CHOL/HDL RATIO 3.9 <5.0 (calc) [facility] NON HDL CHOLESTEROL 134(H) <130 mg/dL (calc) [facility] Comment: For patients with diabetes plus 1 major ASCVD risk factor, treating to a non-HDL-C goal of <100 mg/dL (LDL-C of <70 mg/dL) is considered a therapeutic option. 04/04/2025 8:30 AM CDT 04/05/2025 8:11 AM CDT Narrative Resulting Agency Comment Performing Organization Information: Site ID: B[place] Name: Ilene Nielson Address: [place] [address] Director: Nishi Pike MD Nando Esquivel MD LABORATORY Final Resul t [facility] [place] [address] [address] [address], [place] * ENDOSCOPY (SCAN ORDER) (10/31/2024) 10/31/2024 [facility] Scanned SCANNING Final Resu lt * COLONOSCOPY GENERIC (SCAN ORDER) (10/31/2024) 10/31/2024 [facility] Scanned SCANNING Final Resu lt from Last 3 Months or Most Recently Relevant to Health Maintenance Insurance [employer] Care Teams Medical Information Specialist Relationship Specialty [place] [address] [place] [address] PCP - General FAMILY PRACTICE 06/08/23
--- OUTSIDE RECORDS SUMMARY | 2025-06-02 01:20 | XMS_ITS | Encounter Summary ---
Author Organization [facility] Address [facility] [place] [address] Care Team Providers Care Pensionholder Information Clerk Name Role Phone Iglesia Moreno MD Primary Care Provider U Vaishali Desouza NP Primary Care Provider + [phone] Elvira Cantu MD Primary Care Provider [phone] Nando Esquivel MD Primary Care Provider [phone] Encounter Details Date Type Department Care Team (Late st Contact Info) Description 12/11/2021 [employer] Message Enc [facility] Medical Group Family & Internal Medicine [address] [address] [facility] medications Social History Tobacco Use Types [...] COVID-19? No / Unsure 11/27/2021 10:51 AM SUPERVISOR BYPRODUCTS documented as of this encounter Plan of Treatment Upcoming Encounters Date Type Department Care Team (Late st Contact Info) Description 07/13/2025 4:00 PM CDT Office Visit [facility] Medical Group Family & Internal Medicine [facility] [address] [place] [address] Nando Esquivel MD [address] [address] documented as of this encounter Visit Diagnoses Not on filedocumented in this encounter Additional Health Concerns Infection Onset Date Last Indicated Resolved Time COVID-19 Rule Out 08/19/2023 07/28/2023 08/19/2023 10:44 AM CDT COVID-19 Rule Out 10/01/2023 10/01/2023 10/01/2023 11:52 AM SUPERVISOR [employer]PRODUCTS COVID-19 Rule Out 11/05/2023 11/05/2023 11/05/2023 12:36 PM SUPERVISOR [employer]PRODUCTS COVID-19 Rule Out 11/05/2023 11/05/2023 11/05/2023 12:40 PM SUPERVISOR [employer]PRODUCTS COVID-19 Rule Out 11/05/2023 11/05/2023 11/05/2023 2:15 PM SUPERVISOR [employer] Assessment Noted Time PHQ-9 Depression Total Score: 0 11/27/19 10:59 AM SUPERVISOR [employer] documented as of this encounter Care Teams Pensionholder Information Clerk Relationship Specialty Start Date End Date Iglesia Moreno MD PCP - General INTERNAL MEDICINE 03/10/19 02/26/23 Vaishali Lundy, JAIME [address] [place] [address] PCP - General Nurse Practitioner Family 02/27/2304/24 [place] [address] [place] [address] PCP - General FAMILY PRACTICE 05/18/23 06/07/23 [place] [address] [place] [address] PCP - General FAMILY PRACTICE 06/08/23 documented as of this encounter
--- OUTSIDE RECORDS SUMMARY | 2025-06-02 01:20 | XMS_ITS | Encounter Summary ---
Author Organization [facility] Address [address] [place] [address] Care Team Providers Care Tobacco Buyer Name Role Phone Iglesia Moreno MD Primary Care Provider U Vaishali Desouza NP Primary Care Provider [phone] Elvira Cantu MD Primary Care Provider [phone] Nando Esquivel MD Primary Care Provider [phone] Encounter Details Date Type Department Care Team (Late st Contact Info) Description 10/05/2018 Abstract [facility] CONVERSION [address] [place] [address] , Generic MD Odalys Social [...] Description 07/13/2025 4:00 PM CDT Office Visit [facility] Medical Group Family & Internal Medicine [facility] [address] [place] [address] Nando Esquivel MD [address] [address] documented as of this encounter Visit Diagnoses Not on filedocumented in this encounter Additional Health Concerns Infection Onset Date Last Indicated Resolved Time COVID-19 Rule Out 10/25/2020 10/25/2020 10/25/2020 2:10 PM MANAGER LEARNING COVID-19 Confirmed 10/25/2020 10/25/2020 12:33 AM MANAGER LEARNING COVID-19 Rule Out 11/27/2021 11/27/2021 11/27/2021 11:49 AM MANAGER LEARNING COVID-19 Rule Out 08/19/2023 07/28/2023 08/19/2023 10:44 AM CDT COVID-19 Rule Out 10/01/2023 10/01/2023 10/01/2023 11:52 AM MANAGER LEARNING COVID-19 Rule Out 11/05/2023 11/05/2023 11/05/2023 12:36 PM MANAGER LEARNING COVID-19 Rule Out 11/05/2023 11/05/2023 11/05/2023 12:40 PM MANAGER LEARNING COVID-19 Rule Out 11/05/2023 11/05/2023 11/05/2023 2:15 PM MANAGER LEARNING documented as of this encounter Care Teams Tobacco Buyer Relationship Specialty Start Date End Date Iglesia Moreno MD PCP - General INTERNAL MEDICINE 03/10/19 02/26/23 Vaishali Lundy VESSEL LINER [address] [place] [address] PCP - General Nurse Practitioner Family 02/27/2304/24 [place] [address] [place] [address] PCP - General FAMILY PRACTICE 05/18/23 06/07/23 [place] [address] [place], [place] [id number] PCP - General FAMILY PRACTICE 06/08/23 documented as of this encounter
--- OUTSIDE RECORDS SUMMARY | 2025-06-02 01:20 | XMS_ITS | Encounter Summary ---
Author Organization [facility] Address [facility] [place] [address] Care Team Providers Care Abstracter Name Role Phone Iglesia Moreno MD Primary Care Provider U Vaishali Desouza NP Primary Care Provider + [phone] Elvira Cantu MD Primary Care Provider [phone] Nando Esquivel MD Primary Care Provider [phone] Encounter Details Date Type Department Care Team (Late st Contact Info) Description 10/29/2021 MyChart Message Enc [facility] Medical Group Family & Internal Medicine [address] [address] Mychart, [facility] Provider MyChart Social History Tobacco Use [...] COVID-19? No / Unsure 10/07/2021 9:58 AM SEO COORDINATOR documented as of this encounter Plan of Treatment Upcoming Encounters Date Type Department Care Team (Late st Contact Info) Description 07/13/2025 4:00 PM CDT Office Visit [facility] Medical Group Family & Internal Medicine [address] [address] Nando Esquivel MD [address] [address] documented as of this encounter Visit Diagnoses Not on filedocumented in this encounter Additional Health Concerns Infection Onset Date Last Indicated Resolved Time COVID-19 Rule Out 11/27/2021 11/27/2021 11/27/2021 11:49 AM SEO COORDINATOR COVID-19 Rule Out 08/19/2023 07/28/2023 08/19/2023 10:44 AM CDT COVID-19 Rule Out 10/01/2023 10/01/2023 10/01/2023 11:52 AM SEO COORDINATOR COVID-19 Rule Out 11/05/2023 11/05/2023 11/05/2023 12:36 PM SEO COORDINATOR COVID-19 Rule Out 11/05/2023 11/05/2023 11/05/2023 12:40 PM SEO COORDINATOR COVID-19 Rule Out 11/05/2023 11/05/2023 11/05/2023 2:15 PM SEO COORDINATOR documented as of this encounter Care Teams Abstracter Relationship Specialty Start Date End Date Iglesia Moreno MD PCP - General INTERNAL MEDICINE 03/10/19 02/26/23 Vaishali Lundy, JAIME [address] [place] [address] PCP - General Nurse Practitioner Family 02/27/2304/24 [place] [address] [address] [place] [address] PCP - General FAMILY PRACTICE 05/18/23 06/07/23 [place] [address] [place] [address] PCP - General FAMILY PRACTICE 06/08/23 documented as of this encounter
--- NOTE | 2025-06-02 07:21 | WPDANESEPPF ---
Anes - Initial Pre Proc Eval Procedure: Operation Date: 06/02/25 08:30 Proposed Procedures p Left Extracorporeal Shock Wave Lithotripsy - Acosta Harden MD Date/Time: 06/02/25 07:21 Surgeon: Acosta Harden MD Pre Op Diagnosis: Lt Kidney Stone Patient Data Age: 69 Gender: M Height: 1.83 m Weight: 108 kg Allergies Allergy/AdvReac Type Severity Reaction Status Date / Time Penicillins Allergy Mild UNKNOWN - Verified 06/02/25 07:21 A CHILD atorvastatin AdvReac Unknown MUSCLE Verified 06/02/25 07:21 WEAKNESS Home Medications ?Medication ?Instructions ?Recorded ?Confirmed ?Type atorvastatin 10 mg tablet 10 mg PO EVERY OTHER DAY 02/03/20 06/01/25 History ezetimibe 10 mg tablet 10 mg PO HS 02/03/20 06/01/25 History losartan 50 mg tablet 50 mg PO DAILY 02/03/20 06/01/25 History aspirin 81 mg tablet,delayed 81 mg PO DAILY 02/06/20 06/01/25 History release cyanocobalamin (vitamin B-12) 5,000 mcg sublingual DAILY 02/06/20 06/01/25 History 5,000 mcg sublingual tablet (Vitamin B-12) acetaminophen 500 mg tablet 1,000 mg PO Q6H PRN Pain 10/21/23 06/01/25 History multivitamin with iron-mineral 1 tablet PO DAILY 10/21/23 06/01/25 History empagliflozin 10 mg tablet 10 mg PO QAM 06/01/25 06/01/25 History (Jardiance) magnesium 250 mg tablet 500 mg PO HS 06/01/25 06/01/25 History tamsulosin 0.4 mg capsule 0.4 mg PO Q24H 06/01/25 06/01/25 History Patient hx anesthesia problems: none Family hx anesthesia problems: none Results Review: All pre-operative results and documents have been reviewed as part of the pre-operative evaluation. [facility] Past Medical History Medical History TERELL (obstructive sleep apnea) CPAP Hyperlipidemia HTN (hypertension) Prostate cancer Nephrolithiasis Surgical History Surgical History History of repair of hiatal hernia H/O prostatectomy Hx of cholecystectomy Family History Family History Other Diabetes mellitus Family history of malignant neoplasm Hypertension Social History Social History Smoking status: Never smoker Second hand tobacco smoke exposure: No Alcohol intake: current Alcohol use details: VERY RARE - 1 OR 2X YEAR Substance use: never Substance use type: does not use Living arrangements: with family Spiritual care concerns: No Anes - Eval Final PreProcedure Day of Procedure 06/02/25 07:21 Patient weight: obese Heart: regular rate and rhythm Lungs: clear to auscultation Airway: Mallampati scale class II Neurological: alert and oriented Last oral intake: >/= 8 hours ASA classification: III Emergent: no Anesthetic plan: proceed Anesthesia type and monitoring: general LMA and standard monitoring Results Review: All pre-operative results and documents have been reviewed as part of the pre-operative evaluation. Informed Consent: The patient's anesthetic plan and its attendant risks and benefits were discussed with the patient/family/POA. Questions were solicited and answers provided to the satisfaction of the patient/family/POA.
--- NOTE | 2025-06-02 07:22 | WPDHPUPDATE1 ---
History and Physical Update Update Date/Time: 06/02/25 07:22 History and Physical has been reviewed, including an updated exam of the patient. There are NO changes in the patient's condition. Risks, benefits, and alternatives have been discussed and questions answered. Patient agrees to proceed with procedure. Proceed with left renal eswl
[2025-06-02] MEDS: LACTATED RINGERS 1,000 ML 30 ML IV CONT (07:33)
[2025-06-02] MEDS: ceFAZolin 2 GM in SODIUM CHLORIDE 0.9% IV 50 ML 100 ML IVPB (08:22)
--- NOTE | 2025-06-02 08:56 | W.PM.PROC2 ---
Procedure Note - Detailed Date of Procedure 06/02/25 Pre-op Diagnosis Lt Kidney Stone Post-op Diagnosis Same Procedure Performed Lithotripsy of left renal calculi upper pole Surgeon Acosta Harden MD Anesthesia General Description of Procedure Patient was taken to the operative suite correctly identified. Once anesthesia was obtained he had 2 stones in the upper pole which were localized. There were adjacent to each other. Two thousand five hundred shocks were given. There appeared to be some fragmentation. Tolerated procedure well without any complications. The lower pole stone will need to be addressed at a later point. This completes dictation. Please send a copy of op note to my office. Estimated Blood Loss 0 Drains No Packing No Pathology None sent Complications No immediate complications Condition Stable Disposition PACU
== END 2025-06-02 10:29 | disposition home or self-care (01) ==
PROVIDERS: PCP Family Medicine Sports Medicine; Visit Provider Urology
PROC: (CPT 50590; principal; 2025-06-02 08:30)
DX: N20.0 Calculus of kidney (principal); E66.9 Obesity, unspecified; Z68.33 Body mass index [BMI] 33.0-33.9, adult; Z79.84 Long term (current) use of oral hypoglycemic drugs
CPT/HCPCS: 50590; 74018; 82948; J0690; J1100; J2405; J2704; J7120

== ENCOUNTER 2025-06-08 13:45 | Outpatient (CLI) | payer OTHER, SELFPAY ==
--- NOTE | ~2025-06-08 | XR_ITS ---
XR abdomen/kub 1V 06/08/2025 13:58 Indication: Renal stone Procedure: KUB Comparison: 06/02/2025 Findings: There are stones in the lower pole of the left kidney. There are pelvic phleboliths in the right pelvis. There are surgical changes consistent with prostatectomy in the pelvis. There are also surgical changes in the left upper abdomen. Nonobstructive bowel gas pattern. Impression: 1: Left nephrolithiasis. Reviewed, dictated and finalized at location B. Impression: 1: Left nephrolithiasis.
--- OUTSIDE RECORDS SUMMARY | 2025-06-08 13:55 | XMS_ITS | Encounter Summary ---
Author Organization [facility] Address [facility] [place] [address] Care Team Providers Care Paraffin Plant Sweater Operator Name Role Phone Vaishali Lundy NP Primary Care Provider [phone] Elvira Cantu MD Primary Care Provider [phone] Nando Esquivel MD Primary Care Provider [phone] Encounter Details Date Type Department Care Team (Late st Contact Info) Description 02/27/2023 [employer] Message [facility] Medical Group Family & Internal Medicine [address] [address] [facility] Provider results Social History Tobacco [...] Description 07/13/2025 4:00 PM CDT Office Visit [facility] Medical Group Family & Internal Medicine [facility] [address] [place] [address] Nando Esquivel MD [address] [facility] [address] [place] [address] documented as of this encounter Visit Diagnoses Not on filedocumented in this encounter Additional Health Concerns Infection Onset Date Last Indicated Resolved Time COVID-19 Rule Out 08/19/2023 07/28/2023 08/19/2023 10:44 AM CDT COVID-19 Rule Out 10/01/2023 10/01/2023 10/01/2023 11:52 AM LEGAL ADMINISTRATOR COVID-19 Rule Out 11/05/2023 11/05/2023 11/05/2023 12:36 PM LEGAL ADMINISTRATOR COVID-19 Rule Out 11/05/2023 11/05/2023 11/05/2023 12:40 PM LEGAL ADMINISTRATOR COVID-19 Rule Out 11/05/2023 11/05/2023 11/05/2023 2:15 PM LEGAL ADMINISTRATOR Assessment Noted Time PHQ-9 Depression Total Score: 0 11/27/19 10:59 AM LEGAL ADMINISTRATOR documented as of this encounter Care Teams Paraffin Plant Sweater Operator Relationship Specialty Start [place] [address] [facility] [address] [place] [address] PCP - General Nurse Practitioner Family 02/27/23 604/14 [place] [address] [facility] [place] [address] PCP - General FAMILY PRACTICE 05/18/23 06/07/23 [place] [address] [place] [address] PCP - General FAMILY PRACTICE 06/08/23 documented as of this encounter
--- OUTSIDE RECORDS SUMMARY | 2025-06-08 13:55 | XMS_ITS | Encounter Summary ---
Author Organization [facility] Address [facility] [place] [address] Care Team Providers Care Incident Response Consultant Name Role Phone Iglesia Moreno MD Primary Care Provider U Vaishali Desouza NP Primary Care Provider + [phone] Elvira Cantu MD Primary Care Provider [phone] Nando Esquivel MD Primary Care Provider [phone] Encounter Details Date Type Department Care Team (Late st Contact Info) Description 12/04/2022 [employer] Message Enc [facility] Medical Group Family & Internal Medicine [address] [address] [employer], [facility] Provider Due for routine follow up [...] CENTER Medical Group Family & Internal Medicine [facility] [address] [place] [address] Nando Esquivel MD [address] [facility] [address] [place] [address] documented as of this encounter Visit Diagnoses Not on filedocumented in this encounter Additional Health Concerns Infection Onset Date Last Indicated Resolved Time COVID-19 Rule Out 08/19/2023 07/28/2023 08/19/2023 10:44 AM CDT COVID-19 Rule Out 10/01/2023 10/01/2023 10/01/2023 11:52 AM OFFICE ASSISTANCE COVID-19 Rule Out 11/05/2023 11/05/2023 11/05/2023 12:36 PM OFFICE ASSISTANCE COVID-19 Rule Out 11/05/2023 11/05/2023 11/05/2023 12:40 PM OFFICE ASSISTANCE COVID-19 Rule Out 11/05/2023 11/05/2023 11/05/2023 2:15 PM OFFICE ASSISTANCE Assessment Noted Time PHQ-9 Depression Total Score: 0 11/27/19 10:59 AM OFFICE ASSISTANCE documented as of this encounter Care Teams Incident Response Consultant Relationship Specialty Start Date End Date Iglesia Moreno MD PCP - General INTERNAL MEDICINE 03/10/19 02/26/23 [place] [address] [facility] [address] [place] [address] PCP - General Nurse Practitioner Family 02/27/2304/24 [place] [address] [address] [place] [address] PCP - General FAMILY PRACTICE 05/18/23 06/07/23 [place] [address] [place] [address] PCP - General FAMILY PRACTICE 06/08/23 documented as of this encounter
--- OUTSIDE RECORDS SUMMARY | 2025-06-08 13:55 | XMS_ITS | Clinical Summary ---
Author Organization [facility] Address [address] [place] [address] Care Team Providers Care Drum Puller Name Role Phone Nando Esquivel MD Primary [...] (10/01/2023): Added automatically from request for surgery [id number] History of colon polyps 09/25/2021 Overview (10/01/2023): Added automatically from request for surgery [id number] Spondylosis of lumbar spine 04/15/2021 Acute right-sided [...] Overview: Added automatically from request for surgery [id number] Encounters Date Type Department Care Team Description 05/25/2025 Scan [facility] Scanned, Doc [facility] CT (SCAN); Image (SCAN) 05/22/2025 Scan [facility] Scanned, [facility] 05/11/2025 Telephone [facility] [address] [address] Nando Esquivel MD Medication 04/11/2025 4:00 PM CDT Office Visit [facility] [address] [address] Nando Esquivel MD Follow Up; Hypertension; Sinusitis 04/11/2025 Travel 04/04/2025 8:30 AM CDT Laboratory Only [facility] [address] [address] Nando Esquivel MD 04/04/2025 Travel 03/29/2025 Orders Only [facility] [address] [address] Nando Esquivel MD 03/24/2025 Scan [facility] Scanned, [facility] 03/16/2025 Telephone [facility] [address] [address] Nando Esquivel MD Lab Order from Last 3 Months Immunizations Immunization Administration Dates Next Due Fluarix (IIV4) 10/06/2020 Fluzone 6 Months+ Quad (0.5 mL Prefilled Syringe) 08/29/2021 Influenza (Generic) 09/07/2019, 8,09/10/2016,2014,09/08/2013,10/28/2012 Influenza Adult (Generic) 09/10/2022,,08/30/2018,2016,09/10/2016,11/08/2014 ERIC (JODI & JODI) COVID-19 AD26 VACCINE 0.5 ML IM SUSP 02/23/2021 MODERNA COVID-19 (GENERAL [place] ANTONIA ZANDRA), MRNA, LNP-S, PF, 50 MCG/ [...] [facility] Internal Medicine [address] [address] Nando Esquivel MD [address] [address] Health Maintenance Due Date Last Done Comments Diabetes: Retinopathy Eye Exam 1973 Hepatitis C 1973 Annual Medicare Wellness Visit 2022 COVID-19 Vaccine ( season) 2024 11/19/2021, 02/23/2021 PHQ-2 (Physician [place]) 11/23/2024 03/17/2024 Hemoglobin A1C 07/05/2025 04/04/2025, 092 [...] complication, with long-term current use of insulin ([facility]) Prostate cancer screening ALBUMIN URINE RANDOM W/CREATININE Routine 04/04/2025 8:30 AM CDT Type 2 diabetes mellitus without complication, with long-term current use of insulin ([facility] HHS/HCC) HEMOGLOBIN, GLYCOSYLATED Routine 04/04/2025 8:30 AM CDT Type 2 diabetes mellitus without complication, with long-term current use of insulin ([facility]) PROSTATE SPECIFIC ANTIGEN,SCREENING Routine 04/04/2025 8:30 AM CDT Encounter for prostate cancer screening LIPID PANEL Routine 04/04/2025 8:30 AM CDT Essential hypertension Mixed hyperlipidemia COMPREHENSIVE METABOLIC PANEL Routine 04/04/2025 8:30 AM CDT Essential hypertension Mixed hyperlipidemia Type 2 diabetes mellitus without complication, with long-term current use of insulin ([facility]) ENDOSCOPY (SCAN ORDER) 10/31/2024 COLONOSCOPY GENERIC (SCAN ORDER) 10/31/2024 from Last 3 Months or Most Recently Relevant to Health Maintenance Results * CT GENERIC (05/25/2025) Only the most recent of2 resultswithin the time period is included. Anatomical Region Laterality Modality Other 05/25/2025 us [facility] Scanned SCANNING Final Resu lt * IMAGE GENERIC (05/25/2025) Anatomical Region Laterality Modality Other 05/25/2025 us [facility] Scanned SCANNING Final Resu lt * (ABNORMAL) HEMOGLOBIN, GLYCOSYLATED (04/04/2025 8:30 AM CDT) HGB A1C 9.0(H) <5.7 % [employer] [facility] Comment: For someone without known diabetes, a [...] Performing Organization Information: Site ID: BENJAMIN Name: [facility] Address: [address] [address] Director: Nishi Pike MD Nando Esquivel MD LABORATORY Final Resul t ILENE AJ [employer] [address] [address] [address], [place] * PROSTATE SPECIFIC ANTIGEN,SCREENING (04/04/2025 8:30 AM CDT) PSA TOTAL 0.09 < OR = 2.50 ng/mL [employer] [facility] Comment: The total PSA value from this assay system is standardized against the WHO standard. The test result will be approximately 20% lower when compared to the equimolar-standardized total PSA ([place]). Comparison of serial PSA results should be [...] Performing Organization Information: Site ID: BENJAMIN Name: [facility] Address: [facility] [place] [address] Director: Nishi Pike MD us Nando Esquivel MD LABORATORY Final Resul t [employer] Thomas AJ [employer] [facility] [address] [place] [place] [address] * ALBUMIN/CREATININE RATIO, RANDOM URINE (04/04/2025 8:30 AM CDT) CREATININE RANDOM (U) 164 20 - 320 mg/dL [facility] MICROALBUMIN (U) 0.4 See Note: mg/dL [employer] Comment: Reference Range: Reference Range Not established MICROALB/CREAT 2 <30 mg/g creat [employer] Comment: The ADA defines abnormalities in [...] Performing Organization Information: Site ID: BENJAMIN Name: [employer] Address: [facility] [place] [address] Director: Nishi Pike MD us Nando Esquivel MD URINE ORDERABLES Final Resu lt [facility] [employer] [facility] [place] [address] [address] [address], [place] * (ABNORMAL) COMPREHENSIVE METABOLIC PANEL (04/04/2025 8:30 AM CDT) GLUCOSE 195(H) 65 - 99 mg/dL [employer] [facility] Comment: Fasting reference interval For someone without known diabetes, a glucose value >125 mg/dL indicates that they may have diabetes and this should be confirmed with a follow-up test. BUN 15 7 - 25 mg/dL [employer] [facility] CREATININE S/P/B 1.29 0.70 - 1.35 mg/dL [employer] [facility] GFR ESTIMATE 61 > OR = 60 mL/min/1. 73m2 [employer] [facility] BUN CREATININE RATIO SEE NOTE: 6 - (calc) [employer] [facility] Comment: Not Reported: BUN and Creatinine are within reference range. SODIUM S/P/B 139 135 - 146 mmol/L [employer] [facility] POTASSIUM S/P/B 5.0 3.5 - 5.3 mmol/L [employer] [facility] CHLORIDE S/P/B 104 98 - 110 mmol/L [facility] CO2 27 20 - 32 mmol/L [facility] CALCIUM S/P/B 9.7 8.6 - 10.3 mg/dL [facility] TOTAL PROTEIN S/P/B 6.8 6.1 - 8.1 g/dL [employer] ALBUMIN S/P/B 4.4 3.6 - 5.1 g/dL [facility] GLOBULIN 2.4 1.9 - 3.7 g/dL (calc) [facility] ALBUMIN/GLOBULI N RATIO 1.8 1.0 - 2.5 (calc) [facility] BILIRUBIN TOTAL S/P/B 1.1 0.2 - 1.2 mg/dL [facility] ALKALINE PHOSPHATASE S/P/B 106 35 - 144 U/L [facility] AST 25 10 - 35 U/L [facility] ALT 34 9 - 46 U/L [employer] 04/04/2025 8:30 AM CDT 04/05/2025 8:11 AM CDT Narrative Resulting Agency Comment Performing Organization Information: Site ID: BENJAMIN Name: Ilene Nielson Address: [address] [address] Director: Nishi Pike MD Nando Esquivel MD LABORATORY Final Resul t ILENE AJ [facility] [place] [address] [address], * (ABNORMAL) LIPID PANEL (04/04/2025 8:30 AM CDT) CHOLESTEROL 181 <200 mg/dL [facility] HDL 47 > OR = 40 mg/dL [facility] TRIGLYCERIDES 121 <150 mg/dL [facility] LDL (CALCULATED) 111(H) mg/dL (calc) [facility] Comment: Reference range: <100 Desirable range <100 mg/dL for primary prevention; <70 mg/dL for patients with CHD or diabetic patients with > or = 2 CHD risk factors. LDL-C is now calculated using the Jose Alberto-Anurag calculation, which is a validated novel method providing better accuracy than the Friedewald equation in the estimation of LDL-C. Jose Alberto SS et al. MISTI. 2013;310(19): 5287-2205 (http://education.Univision.Amootoon/faq/HIK196) CHOL/HDL RATIO 3.9 <5.0 (calc) [facility] NON HDL CHOLESTEROL 134(H) <130 mg/dL (calc) [facility] Comment: For patients with diabetes plus 1 major ASCVD risk factor, treating to a non-HDL-C goal of <100 mg/dL (LDL-C of <70 mg/dL) is considered a therapeutic option. 04/04/2025 8:30 AM CDT 04/05/2025 8:11 AM CDT Narrative Resulting Agency Comment Performing Organization Information: Site ID: BENJAMIN Name: Ilene Nielson Address: [place] [address] Director: Nishi Pike MD Nando Esquivel MD LABORATORY Final Resul t [facility] [place] [address] [address] [address], [place] * ENDOSCOPY (SCAN ORDER) (10/31/2024) 10/31/2024 [facility] Scanned SCANNING Final Resu lt * COLONOSCOPY GENERIC (SCAN ORDER) (10/31/2024) 10/31/2024 [facility] Scanned SCANNING Final Resu lt from Last 3 Months or Most Recently Relevant to Health Maintenance Insurance [employer] Care Teams Drum Puller Relationship Specialty [place] [address] [place] [address] PCP - General FAMILY PRACTICE 06/08/23
--- OUTSIDE RECORDS SUMMARY | 2025-06-08 13:55 | XMS_ITS | Referral Summary ---
Author Organization [facility] Address [address] [place] [address] Care Team Providers Care Mexican Food Maker Name Role Phone Nando Esquivel MD Primary Care Provider + Allergies Active Allergy Reactions Criticality Noted Date Comments Penicillins Unknown Low 06/25/2007 Remote allergy Nphbaxk-Jcg-Pts Reductase Inhibitors Other (See comments) Low 01/16/2016 [...] mg tablet 10/15/20 21 Active vit D3-vit I-sfhdchwib-tf ps [phone] mveu-lta-uj-mg tablet Take by mouth Active magnesium gluconate 200 mg tabletIndicati ons:hypomagnes emia 1 tablet (200 mg total) Active Active Problems Problem Noted Date Diagnosed Date 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 History of colon polyps 09/25/2021 Overview (09/25/2021): Added automatically from request for surgery [id number] History of Mendoza's esophagus 09/25/2021 Overview (09/25/2021): Added automatically from request for surgery [id number] Spondylosis of lumbar spine 04/15/2021 Encounter for screening colo noscopy for gyh-alxf-ejiq patient 08/24/2018 Overview (08/24/2018): Added automatically from request for surgery [id number] Odynophagia 07/13/2018 Overview (07/13/2018): Added automatically from request for surgery [id number] Hypertension 07/11/2018 Assessment & Plan (07/13/2019 2:33 [...] on file Legal Sex Male 8:52 PM CREPE SOLE SCOURER Gender Identity Not on file Sexual Orientation Not on file Last Filed Vital Signs Vital Sign Reading Time Taken Comments Blood Pressure 109/66 10/31/2024 3:10 PM CREPE SOLE SCOURER Pulse 71 10/31/2024 3:10 PM CREPE SOLE SCOURER Temperature 36.9 C (98.4 F) 10/31/2024 11:53 AM CREPE SOLE SCOURER Respiratory Rate 16 10/31/2024 3:10 PM CREPE SOLE SCOURER Oxygen Saturation 100% 10/31/2024 3:10 PM CREPE SOLE SCOURER Inhaled Oxygen Concentration - - Weight 109.8 kg (242 lb) 10/31/2024 11:53 AM CREPE SOLE SCOURER Height 182.9 cm (6') 10/31/2024 11:53 AM CREPE SOLE SCOURER Body Mass Index 32.82 10/31/2024 11:53 AM CREPE SOLE SCOURER Plan of Treatment Not on file Procedures Procedure Name Priority Date/Time Associated Diagnosis Comments COLONOSCOPY 10/31/2024 2:11 PM CREPE SOLE SCOURER PSA DIAGNOSTIC Routine Gen Lab 04/22/2017 11:44 AM CDT from Last 3 Months or Most Recently Relevant to Health Maintenance Results * Colonoscopy (10/31/2024 2:11 PM CREPE SOLE SCOURER) Anatomical Region Laterality Modality Other Narrative Procedure Note Soco Boo MD - 10/31/2024 2:11 PM CST ENDOSCOPY LAB Patient Name: Kirill Duran Procedure Date: 10/31/2024 2:11 PM Admit Type: Outpatient Room: [facility] Date of : 1955 Instrument Name: [...] following this procedure please call my officeat [phone] to speak to my nurse, Raeann Milligan.After hours and evenings please call [phone] andspeak to the GI fellow technical solution architect. Please tell them that Dr. Boo did your procedure and that you wereinstructed to have the fellow call me or the physiciancovering for me to discuss the management of your condition.If you have an urgent problem, [facility] [...] PSA-Total <0.1(L) 0.1 - 4.0 ng/mL [facility] Blood specimen (specimen) 04/22/2017 11:44 AM CDT 04/22/2017 12:38 PM CDT us Notinfile Unknown LAB BLOOD ORDERABLES Final Res ult [facility] Department [place] [address] from Last 3 Months or Most Recently Relevant to Health Maintenance Insurance [facility] CHOICE PLUS [facility] ADVANTAGE CHOICE PPO [facility] ADVANTAGE CHOICE PPO Advance Directives For more information, please contact: [phone] * Full Code (Latest Code Status on File) Date Activated Date Inactivated Comments 10/31/2024 11:39 AM 10/31/2024 7:29 PM * Full Code Date Activated Date Inactivated Comments 10/31/2021 9:21 AM 10/31/2021 5:47 PM * Full Code Date Activated Date Inactivated Comments 11/01/2018 7:16 AM 11/01/2018 11:13 AM * Full Code Date Activated Date Inactivated Comments 07/13/2018 12:29 PM 07/14/2018 10:54 AM Care Teams Mexican Food Maker Relationship Specialty [place] [address] [place] [address] PCP - General Family Medicine 10/19/23
--- OUTSIDE RECORDS SUMMARY | 2025-06-08 13:55 | XMS_ITS | Encounter Summary ---
Author Organization [facility] Address [address] [place] [address] Care Team Providers Care Deputy Coroner Name Role Phone Iglesia Moreno MD Primary Care Provider U Vaishali Desouza NP Primary Care Provider [phone] Elvira Cantu MD Primary Care Provider [phone] Nando Esquivel MD Primary Care Provider [phone] Encounter Details Date Type Department Care Team (Late st Contact Info) Description 10/05/2018 Abstract [facility] CONVERSION [address] [place] [address] , Generic MD Odalys Social [...] Description 07/13/2025 4:00 PM CDT Office Visit [facility] Family & Internal Medicine [facility] [address] [place] [address] Nando Esquivel MD [address] [address] documented as of this encounter Visit Diagnoses Not on filedocumented in this encounter Additional Health Concerns Infection Onset Date Last Indicated Resolved Time COVID-19 Rule Out 10/25/2020 10/25/2020 10/25/2020 2:10 PM PROTOZOOLOGY TEACHER COVID-19 Confirmed 10/25/2020 10/25/2020 12:33 AM PROTOZOOLOGY TEACHER COVID-19 Rule Out 11/27/2021 11/27/2021 11/27/2021 11:49 AM PROTOZOOLOGY TEACHER COVID-19 Rule Out 08/19/2023 07/28/2023 08/19/2023 10:44 AM CDT COVID-19 Rule Out 10/01/2023 10/01/2023 10/01/2023 11:52 AM PROTOZOOLOGY TEACHER COVID-19 Rule Out 11/05/2023 11/05/2023 11/05/2023 12:36 PM PROTOZOOLOGY TEACHER COVID-19 Rule Out 11/05/2023 11/05/2023 11/05/2023 12:40 PM PROTOZOOLOGY TEACHER COVID-19 Rule Out 11/05/2023 11/05/2023 11/05/2023 2:15 PM PROTOZOOLOGY TEACHER documented as of this encounter Care Teams Deputy Coroner Relationship Specialty Start Date End Date Iglesia Moreno MD PCP - General INTERNAL MEDICINE 03/10/19 02/26/23 Vaishali Lundy SANIPRACTIC PHYSICIAN [address] [place] [address] PCP - General Nurse Practitioner Family 02/27/2304/24 [place] [address] [place] [address] PCP - General FAMILY PRACTICE 05/18/23 06/07/23 [place] [address] [place], [place] [id number] PCP - General FAMILY PRACTICE 06/08/23 documented as of this encounter
--- OUTSIDE RECORDS SUMMARY | 2025-06-08 13:55 | XMS_ITS | Encounter Summary ---
Author Organization [facility] Address [facility] [place] [address] Care Team Providers Care Senior Mechanical Designer Name Role Phone Iglesia Moreno MD Primary Care Provider U Vaishali Desouza NP Primary Care Provider [phone] Elvira Cantu MD Primary Care Provider [phone] Nando Esquivel MD Primary Care Provider [phone] Encounter Details Date Type Department Care Team (Late st Contact Info) Description 11/14/2021 YouFolio Message Enc [facility] Medical [facility] Family & Internal Medicine [address] [address] Matt, [facility] Provider Cpap Social History Tobacco Use [...] Description 07/13/2025 4:00 PM CDT Office Visit [facility] Family & Internal Medicine [facility] [address] [place] [address] Nando Esquivel MD [address] [facility] [address] [place] [address] documented as of this encounter Visit Diagnoses Not on filedocumented in this encounter Additional Health Concerns Infection Onset Date Last Indicated Resolved Time COVID-19 Rule Out 11/27/2021 11/27/2021 11/27/2021 11:49 AM FRAME GATE MORTISER OPERATOR COVID-19 Rule Out 08/19/2023 07/28/2023 08/19/2023 10:44 AM CDT COVID-19 Rule Out 10/01/2023 10/01/2023 10/01/2023 11:52 AM FRAME GATE MORTISER OPERATOR COVID-19 Rule Out 11/05/2023 11/05/2023 11/05/2023 12:36 PM FRAME GATE MORTISER OPERATOR COVID-19 Rule Out 11/05/2023 11/05/2023 11/05/2023 12:40 PM FRAME GATE MORTISER OPERATOR COVID-19 Rule Out 11/05/2023 11/05/2023 11/05/2023 2:15 PM FRAME GATE MORTISER OPERATOR documented as of this encounter Care Teams Senior Mechanical Designer Relationship Specialty Start Date End Date Iglesia Moreno MD PCP - General INTERNAL MEDICINE 03/10/19 02/26/23 [place] [address] [facility] [address] [place] [address] PCP - General Nurse Practitioner Family 02/27/2304/14 [place] [address] [place] [address] PCP - General FAMILY PRACTICE 05/18/23 06/07/23 [place] [address] [place] [address] PCP - General FAMILY PRACTICE 06/08/23 documented as of this encounter
--- OUTSIDE RECORDS SUMMARY | 2025-06-08 13:55 | XMS_ITS | Clinical Summary ---
Author Organization [facility] Address [address] [place] [address] Care Team Providers Care Textiles And Clothing Teacher Name Role Phone Nando Esquivel MD Primary Care Provider + Allergies Active Allergy Reactions Criticality Noted Date Comments Penicillins Unknown Low 06/25/2007 Remote allergy Vdtectr-Jgc-Uni Reductase Inhibitors Other (See comments) Low 01/16/2016 [...] mg tablet 10/15/20 21 Active vit D3-vit A-lrjnzosmi-hw ps [phone] simb-pty-hs-mg tablet Take by mouth Active magnesium gluconate 200 mg tabletIndicati ons:hypomagnes emia 1 tablet (200 mg total) Active Active Problems Problem Noted Date Diagnosed Date 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 History of colon polyps 09/25/2021 Overview (09/25/2021): Added automatically from request for surgery [id number] History of Mendoza's esophagus 09/25/2021 Overview (09/25/2021): Added automatically from request for surgery [id number] Spondylosis of lumbar spine 04/15/2021 Encounter for screening colo noscopy for mfy-iype-ardb patient 08/24/2018 Overview (08/24/2018): Added automatically from request for surgery [id number] Odynophagia 07/13/2018 Overview (07/13/2018): Added automatically from request for surgery [id number] Hypertension 07/11/2018 Assessment & Plan (07/13/2019 2:33 [...] 09/08/2019,2018,09/01/2018,08/30,08/31/2017,11/08/2014 Surgical History Surgery Date Site/Laterality Comments OK UNLISTED PROCEDURE ABDOMEN PERITONEUM & OMENTUM Hernia Repair - (Added by TW Conv) OK PROSTECT RETROPUB RAD W/WO NRV SPAR & [...] on file Legal Sex Male 8:52 PM GLOBAL TRANSPORTATION MANAGER Gender Identity Not on file Sexual Orientation Not on file Obstetrics History Last Filed Vital Signs Vital Sign Reading Time Taken Comments Blood Pressure 109/66 10/31/2024 3:10 PM GLOBAL TRANSPORTATION MANAGER Pulse 71 10/31/2024 3:10 PM GLOBAL TRANSPORTATION MANAGER Temperature 36.9 C (98.4 F) 10/31/2024 11:53 AM GLOBAL TRANSPORTATION MANAGER Respiratory Rate 16 10/31/2024 3:10 PM GLOBAL TRANSPORTATION MANAGER Oxygen Saturation 100% 10/31/2024 3:10 PM GLOBAL TRANSPORTATION MANAGER Inhaled Oxygen Concentration - - Weight 109.8 kg (242 lb) 10/31/2024 11:53 AM GLOBAL TRANSPORTATION MANAGER Height 182.9 cm (6') 10/31/2024 11:53 AM GLOBAL TRANSPORTATION MANAGER Body Mass Index 32.82 10/31/2024 11:53 AM GLOBAL TRANSPORTATION MANAGER Plan of Treatment Health Maintenance Due Date [...] Associated Diagnosis Comments COLONOSCOPY 10/31/2024 2:11 PM GLOBAL TRANSPORTATION MANAGER PSA DIAGNOSTIC Routine Gen Lab 04/22/2017 11:44 AM CDT from Last 3 Months or Most Recently Relevant to Health Maintenance Results * Colonoscopy (10/31/2024 2:11 PM GLOBAL TRANSPORTATION MANAGER) Anatomical Region Laterality Modality Other Narrative Procedure Note oSco Boo MD - 10/31/2024 2:11 PM CST ENDOSCOPY LAB Patient Name: Kirill Duran Procedure Date: 10/31/2024 2:11 PM Admit Type: Outpatient Room: [facility] Date of : 1955 Instrument Name: [...] following this procedure please call my officeat [phone] to speak to my nurse, Raeann Milligan.After hours and evenings please call [phone] andspeak to the GI fellow consulting group analyst. Please tell them that Dr. Boo did your procedure and that you wereinstructed to have the fellow call me or the physiciancovering for me to discuss the management of your condition.If you have an urgent problem, [facility] and have the ER [...] ORDERABLES Final Res ult [facility] Department [place] [address] from Last 3 Months or Most Recently Relevant to Health Maintenance Insurance [facility] CHOICE PLUS [facility] ADVANTAGE CHOICE PPO [facility] ADVANTAGE CHOICE PPO Advance Directives For more information, please contact: [phone] * Full Code (Latest Code Status on File) Date Activated Date Inactivated Comments 10/31/2024 11:39 AM 10/31/2024 7:29 PM * Full Code Date Activated Date Inactivated Comments 10/31/2021 9:21 AM 10/31/2021 5:47 PM * Full Code Date Activated Date Inactivated Comments 11/01/2018 7:16 AM 11/01/2018 11:13 AM * Full Code Date Activated Date Inactivated Comments 07/13/2018 12:29 PM 07/14/2018 10:54 AM Care Teams Textiles And Clothing Teacher Relationship Specialty [place] [address] [place] [address] PCP - General Family Medicine 10/19/23
--- OUTSIDE RECORDS SUMMARY | 2025-06-08 13:56 | XMS_ITS | Encounter Summary ---
Author Organization [facility] Address [facility] [place] [address] Care Team Providers Care Amplifier Mechanic Name Role Phone Iglesia Moreno MD Primary Care Provider U Vaishali Desouza NP Primary Care Provider + [phone] Elvira Cantu MD Primary Care Provider [phone] Nando Esquivel MD Primary Care Provider [phone] Encounter Details Date Type Department Care Team (Late st Contact Info) Description 12/11/[address] [facility] Family & Internal Medicine [address] [address] [facility] medications Social History Tobacco Use Types [...] COVID-19? No / Unsure 11/27/2021 10:51 AM CHAINSTITCH ZIPPER SETTER documented as of this encounter Plan of Treatment Upcoming Encounters Date Type Department Care Team (Late st Contact Info) Description 07/13/2025 4:00 PM CDT Office Visit [facility] Family & Internal Medicine [facility] [id number] [place] [phone] Nando Esquivel MD [address] [address] documented as of this encounter Visit Diagnoses Not on filedocumented in this encounter Additional Health Concerns Infection Onset Date Last Indicated Resolved Time COVID-19 Rule Out 08/19/2023 07/28/2023 08/19/2023 10:44 AM CDT COVID-19 Rule Out 10/01/2023 10/01/2023 10/01/2023 11:52 AM CHAINSTITCH ZIPPER SETTER COVID-19 Rule Out 11/05/2023 11/05/2023 11/05/2023 12:36 PM CHAINSTITCH ZIPPER SETTER COVID-19 Rule Out 11/05/2023 11/05/2023 11/05/2023 12:40 PM CHAINSTITCH ZIPPER SETTER COVID-19 Rule Out 11/05/2023 11/05/2023 11/05/2023 2:15 PM CHAINSTITCH ZIPPER SETTER Assessment Noted Time PHQ-9 Depression Total Score: 0 11/27/19 10:59 AM CHAINSTITCH ZIPPER SETTER documented as of this encounter Care Teams Amplifier Mechanic Relationship Specialty Start Date End Date Iglesia Moreno MD PCP - General INTERNAL MEDICINE 03/10/19 02/26/23 Vaishali Lundy, JAIME [address] [place] [address] PCP - General Nurse Practitioner Family 02/27/2304/24 [place] [address] [place] [address] PCP - General FAMILY PRACTICE 05/18/23 06/07/23 [place] [address] [place] [address] PCP - General FAMILY PRACTICE 06/08/23 documented as of this encounter
--- OUTSIDE RECORDS SUMMARY | 2025-06-08 13:56 | XMS_ITS | Encounter Summary ---
Author Organization [facility] Address [facility] [place] [address] Care Team Providers Care Ceramics Artist Name Role Phone Iglesia Moreno MD Primary Care Provider U Vaishali Desouza NP Primary Care Provider + [phone] Elvira Cantu MD Primary Care Provider [phone] Nando Esquivel MD Primary Care Provider [phone] Encounter Details Date Type Department Care Team (Late st Contact Info) Description 10/29/2021 MyChart Message Enc [facility] Family & Internal Medicine [address] [address] Mychart, [facility] Provider MyChart Social History Tobacco Use Types [...] COVID-19? No / Unsure 10/07/2021 9:58 AM METAL FURNITURE ASSEMBLER documented as of this encounter Plan of Treatment Upcoming Encounters Date Type Department Care Team (Late st Contact Info) Description 07/13/2025 4:00 PM CDT Office Visit [facility] Family & Internal Medicine [address] [address] Nando Esquivel MD [address] [address] documented as of this encounter Visit Diagnoses Not on filedocumented in this encounter Additional Health Concerns Infection Onset Date Last Indicated Resolved Time COVID-19 Rule Out 11/27/2021 11/27/2021 11/27/2021 11:49 AM METAL FURNITURE ASSEMBLER COVID-19 Rule Out 08/19/2023 07/28/2023 08/19/2023 10:44 AM CDT COVID-19 Rule Out 10/01/2023 10/01/2023 10/01/2023 11:52 AM METAL FURNITURE ASSEMBLER COVID-19 Rule Out 11/05/2023 11/05/2023 11/05/2023 12:36 PM METAL FURNITURE ASSEMBLER COVID-19 Rule Out 11/05/2023 11/05/2023 11/05/2023 12:40 PM METAL FURNITURE ASSEMBLER COVID-19 Rule Out 11/05/2023 11/05/2023 11/05/2023 2:15 PM METAL FURNITURE ASSEMBLER documented as of this encounter Care Teams Ceramics Artist Relationship Specialty Start Date End Date Iglesia Moreno MD PCP - General INTERNAL MEDICINE 03/10/19 02/26/23 Vaishali Lundy, JAIME [address] [place] [address] PCP - General Nurse Practitioner Family 02/27/2304/24 [place] [address] [place] [address] PCP - General FAMILY PRACTICE 05/18/23 06/07/23 [place] [address] [place] [address] PCP - General FAMILY PRACTICE 06/08/23 documented as of this encounter
== END 2025-06-08 13:46 | disposition home or self-care (01) ==
PROVIDERS: PCP Family Medicine Sports Medicine; Visit Provider Urology
DX: N20.0 Calculus of kidney (principal); Z85.46 Personal history of malignant neoplasm of prostate
CPT/HCPCS: 74018